=== PATIENT | female | born 2000 | race African-American/Black ===

== ENCOUNTER 2022-08-11 13:17 | Outpatient (RCR) | payer OTHER, SELFPAY ==
--- NOTE | 2022-08-11 14:24 | PTOPEVAL1 ---
Assessment and note entered by Nhung Israel, PT, DPT Evaluation Information Assessment Status Evaluation Diagnosis low back pain Onset chronic Subjective Information Pt states she has low back pain and attributes this to her breast size. She states last year she gained a lot of weight really quickly and a lot of the weight went to her breast. She states since last year she has had a lot of pain d/t feeling like she is being pulled forward/down. Pt states she does not have pain when she physically lifts her breast up, she also states she can breath better when doing this. 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 Reported Pain Level Pain Score 4: Self Report Assessment PT Clinical Summary Reza presents to therapy today with a diagnosis of low back pain. Today she demonstrates postural abnormalities in sitting and standing resulting in an increased lumbar lordosis and increased thoracic kyphosis. Through postural education, demonstration, and cueing, pt was able to find spinal neutral and felt an instant relief in her upper and lower back pain. She demonstrates core and scapular weakness adding to her postural deficits. Skilled physical therapy services are indicated to improve strength, address postural abnormalities, improve body mechanics, and to promote a return to baseline without an increase in pain. Plan of Care Interventions Electrical Stimulation,Gait Training,Hot Pack/Cold Pack,Manual Therapy,Neuro Re-education,Patient/ Caregiver Educati,Therapeutic Activities, Therapeutic Exercise PT Services Indicated Yes Treatment Frequency and 1x/wk for 6 wks Duration These treatments will address the objective and functional deficits as defined above. The patient will be advanced safely and appropriately in order for the patient to progress towards his/her prior level of function. Additional exercises will be introduced and as well as a comprehensive home exercise program upon discharge, if needed, ?to ensure carryover of functional gains achieved in the clinic. This treatment plan has been reviewed and agreement upon by the patient.
--- NOTE | 2022-08-18 08:05 | PCPTNOTE ---
Patient called and states she does not want therapy services and would like to cancel all her appointments. Therapist is going to reach out to patient.
--- NOTE | 2022-08-18 16:31 | PTOPDC ---
Assessment and note entered by Nhung Israel, PT, DPT Evaluation Information Assessment Status Discharge - Pt Not Present Diagnosis low back pain Onset chronic Subjective Information Patient called the clinic today and requesting to cancel all of her remaining appointments. She stated she does not wish to continue with any more therapy. Assessment PT Clinical Summary The patient was seen for her initial evaluation on 08/11/22 and completed 0 treatment visits. She will be discharged at this time per patient request. Plan of Care PT Services Indicated Yes
== END 2022-08-21 11:06 | disposition home or self-care (01) ==
LOC: ANHGOSHPT 13:17
DX: M54.50 Low back pain, unspecified (principal)
CPT/HCPCS: 97110; 97161; 97530

== ENCOUNTER 2022-10-12 08:08 | Outpatient (CLI) | payer OTHER, SELFPAY | END 2022-10-12 08:09 | disposition home or self-care (01) | LOC: ANHAUDASC 08:09 | DX: H91.90 Unspecified hearing loss, unspecified ear (principal) | CPT/HCPCS: 92557; 92567 ==

== ENCOUNTER 2024-09-29 17:52 | Emergency (ER) | payer OTHER, SELFPAY ==
--- OUTSIDE RECORDS SUMMARY | 2024-09-29 17:53 | XMS_ITS | Clinical Summary ---
Author Organization [facility] Address [address] [place] [address] Phone Care Team Providers Care Health Physicist Name Role Phone Mahamed Cruz MD Unavailable [phone] Agnes Gustafson APRN, [employer] Primary Care Provide r Abelardo Gibbs MD Unavailable Allergies Active Allergy Reactions Criticality Noted Date Comments Norethin Adan-Eth Estrad-Fe Hives 3 Medications EluRyng 0.12-0.015 MG/24HR RING INSERT 1 VAGINAL RING BY VAGINAL ROUTE, LEAVE IN PLACE FOR 3 WEEKS, THEN REMOVE FOR 1 WEEK. 10/11/2022 Active traZODone (DESYREL) 50 MG Tablet Take 50 mg by mouth nightly. Active Active Problems Problem Noted Date Diagnosed Date MARK (obstructive sleep apnea) 04/22/2024 Gastroesophageal reflux disease without esophagi tis 04/22/2024 Iron deficiency anemia refractory to iron therap y 10/19/2022 Encounters Date Type Department Care Team Description 09/08/2024 2:00 PM CDT Office Visit [facility] - Pulmonology & Sleep Medicine [facility] [address] [place] [address] Abelardo Gibbs MD MARK (obstructive sleep apnea) (Primary Dx); Gastroesophageal reflux disease without esophagitis Discharge Disposition: Discharged to home or Selfcare 09/08/2024 Travel from Last 3 Months Family History Medical History Relation Name Comments Chronic Lung Disease Mother Hypertension Mother Asthma Sister Relation Name Status Comments Brother Alive Mother Alive Sister Alive Social History Tobacco Use Types Packs/Day Years Used Date Smoking Tobacco: Never Smokeless Tobacco: Never Tobacco Cessation:Counseling Given: Not Answered Alcohol Use Standard Drinks/Week Comments Never 0 (1 standard drink = 0.6 oz pur e alcohol) Sexually Active Control Partners Comments Yes Comments Unknown Sex and Gender Information Value Date Recorded Sex Assigned at Not on file Legal Sex Female 4:22 AM CDT Gender Identity Not on file Sexual Orientation Not on file Last Filed Vital Signs Vital Sign Reading Time Taken Comments Blood Pressure 128/80 09/08/2024 2:54 PM CDT Pulse 115 09/08/2024 2:54 PM CDT Temperature 36.8 C (98.3 F) 09/08/2024 2:54 PM CDT Respiratory Rate 20 09/08/2024 2:54 PM CDT Oxygen Saturation 98% 09/08/2024 2:54 PM CDT Inhaled Oxygen Concentration - - Weight 107.7 kg (237 lb 8 oz) 09/08/2024 2:54 PM CDT Height 160 cm (5' 3 ) 09/08/2024 2:54 PM CDT Body Mass Index 42.07 09/08/2024 2:54 PM CDT Plan of Treatment Upcoming Encounters Date Type Department Care Team (Late st Contact Info) Description 03/10/2025 2:45 PM CDT Office Visit [facility] - Pulmonology & Sleep Medicine [facility] [address] [place] [id number] Abelardo Gibbs MD [address] [place] [address] Health Maintenance Due Date Last Done Comments Hepatitis C Virus (HCV) Screening 2002 Meningococcal B Immunization (1 of 2 - Standard) 2018 Pap Smear 2023 SARS-COV-2 Immunization ( season) 2024 Respiratory Syncytial Virus (RSV) Immunization (Adult) (1 - 1-dose 75+ series) 2077 Hepatitis B Immunization Completed 004, 03/29/2004, 2002, Additional history exists Pneumococcal Immunization Combined Aged Out 03/29/2004 No longer eligible based on patient's age to complete this topic Human Papillomavirus (HPV) Immunization Completed 07/27/2014, 10/23/2013, 07/16/2012 Meningococcal Immunization (ACWY) Completed 01/14/2018, 10/23/2013 DTaP/Tdap/Td Immunization Discontinued 2022, 02/10/2013, 03/05/2007, Additional history exists TdaP Immunization Completed 03/15/2023, 02/10/2013 Influenza Immunization Completed , 03/05/2023, 02/24/2018, Additional history exists Rotavirus Immunization Aged Out No lo nger eligible based on patient's age to complete this topic Insurance MED[employer]ID [employer] Care Teams Health Physicist Relationship Specialty Start Date End Date Agnes Gustafson APRN, [employer] [address] [place] [address] PCP - General Advanced Practice Nurse 11/21/23 Mahamed Cruz MD [address] [place] [phone] Consulting Physician Oncology 11/02/22 Abelardo Gibbs MD [address] [place] [address] Consulting Physician Pulmonary Disease 04/23/24
--- OUTSIDE RECORDS SUMMARY | 2024-09-29 17:54 | XMS_ITS | Data Portability ---
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 Plan of Treatment Reminders Order Date Submit Date Provider Last Modified By Organization Details Last Modified Time Details Appointments NEW MARCIAEN T 60 2024 09:00A Will Fowler NP Not available Not available Not available Lab magnes ium, serum or plasma 2023 024 [facility], [address], [address], [place], [address], 05/02/2024 22:08:05 TSH + free T4, serum 2023 024 [facility], [address], [address], [place], [address], 05/03/2024 08:23:31 CMP, serum or plasma 2023 024 [facility], [address], [address], [place], [address], 05/02/2024 22:08:04 Mycoba cteriu m tuberc ulosis stimul ated gamma interf oneida, qual, blood 2023 024 [facility], [address], [address], [place], [address], 05/06/2024 16:11:56 urinal ysis comple te, reflex cultur e [address] [facility], [address] [place] [address], [address], [place], [address], 11/02/2023 05:10:33 CMP, serum or plasma [address] [facility], [address] [place] [address], [address], [place], [address], 11/01/2023 00:08:44 iron + total iron-b inding capaci ty (TIBC) , serum [address] [facility], [address] [place] [address], [address], [place], [address], 11/02/2023 05:10:34 vitami n B12 + folate , serum or blood [address] [facility], [address] [place] [address], [address], [place], [address], 11/02/2023 05:10:34 vitami n D, 25-hyd antoinette, total, serum [address] [facility], [address] [place] [address], [address], [place], [address], 11/02/2023 05:10:35 Mycoba cteriu m tuberc ulosis stimul ated gamma interf oneida, qual, blood 2022 023 [facility], [address] [place] [address], [address], 04/27/2023 08:50:28 HbA1c (hemog lobin A1c), blood 2022 023 [facility], [address] [place] [address], [address], [place], [address], 04/27/2023 08:49:55 Mycoba cteriu m tuberc ulosis stimul ated gamma interf oneida, qual, blood 2022 023 [facility], [address] [place] [address], [address], [place], [address], 04/27/2023 08:50:20 TIBC (total iron-b inding capaci ty), serum [address] [facility], [address] [place] [address], [address], [place], [address], 05/31/2023 09:26:10 CBC w/ auto diff [address] [facility], [address] [place] [address], [address], [place], [address], 05/31/2023 09:26:12 Referral psychi atrist referr nd 2024 025 juan carlos Talbot (), [address], [place], [address], 08/21/2024 10:52:35 cardio logist referr al 2023 024 rodney Wallace MD, [address], [address], [place], [address], 05/07/2024 13:26:15 pulmon ologis t referr maggy - sleep study 2023 024 PAULY Gibbs MD, [address] [facility], Third Floor, [place], [address], 04/22/2024 15:16:49 weight manage ment referr maggy 2023 024 [facility], [address] [place] [address], [address], 10/31/2023 08:25:29 Procedures None record ed. Surgeries None record ed. Imaging None record ed. Medication Orders hydrox yzine HCl 50 mg tablet 2024 025 [id number], [address] [place], [address], 07/25/2024 15:31:01 venlaf axine ER 37.5 mg capsul e,exte nded releas e 24 hr 2024 025 [id number], [address] [place], [address], 07/25/2024 15:31:57 venlaf axine ER 75 mg capsul e,exte nded releas e 24 hr 2024 025 [id number], [address] [place], [address], 07/25/2024 15:31:02 trazod one 50 mg tablet 2023 025 [id number], [address] [place] [address], [address], 07/25/2024 15:26:40 Patient TargetsNo targets recorded. Patient Instructions Encounter Date Encounter Id Patient Instructions Last Modified By Organization Details Last Modified Time 03/15/2023 [id number] A healthy lifestyle: care instructions rodney Not available 03/19/2023 23:46:42 04/10/2023 [id number] A healthy lifestyle: care instructions rodney Not available 04/15/2023 10:30:41 10/30/2023 [id number] A healthy lifestyle: care instructions rodney Not available 10/30/2023 17:17:47 05/02/2024 [id number] A healthy lifestyle: care instructions rodney Not available 05/06/2024 08:55:59 07/25/2024 [id number] A healthy lifestyle: care instructions rodney Not available 07/25/2024 15:30:54 Reason for Referral Cardiovascular Surgical Tech Referral for P ersistent insomnia sleep study Referring Physician: [facility], Encounter Date: 10/30/2023 Weight Management Referral f or Morbid obesity Referring Physician: [facility], Encounter Date: 10/30/2023 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 Not Available [facility] ([facility]) [address] [facility], [place], [address], 04/19/2023 15:10:40 04/17/2004/18/2023 QUANT IFERO N-TB GOLD PLUS quantiferon criteria Commen t Quant iFERO N-TB Gold Plus is a quali tativ e indir ect test for M tuber culos is infec tion (incl uding disea se) and is inten ded for use in conju nctio n with risk asses sment , radio graph y, and other medic al and diagn ostic evalu ation s. The Quant iFERO N-TB Gold Plus resul t is deter mined by subtr actin g the Nil value from eithe r TB antig en (Ag) value . The Mitog en tube serve s as a contr ol for the test. Not Available [facility] ([facility]) [address] [facility], [place], [address], 04/19/2023 15:10:40 04/17/20 23 04/19/2023 QUANT IFERO N-TB GOLD PLUS quantiferon- TB gold plus Negati ve negati ve No respo nse to M tuber rishios is antig ens detec martha. Infec tion with M jona blackwellos is is unlik allyson, but high risk indiv idual s shoul d be consi dered for addit ional testi ng (ATS/ IDSA/ CDC Clini leandra Pract ice Guide lines , 2017) . The refer ence range is an Antig en minus Nil resul t of <0.35 IU/mL . Chemi lumin escen ce immun oassa y metho dolog y Not Available [facility] ([facility]) [address] [place], [address], 04/19/2023 15:10:40 04/17/20 23 04/19/2023 QUANT IFERO N-TB GOLD PLUS quantiferon TB1 Ag value 0.00 IU/mL Not Available [facility] ([facility]) [address] [place], [address], 04/19/2023 15:10:40 04/17/20 23 04/19/2023 QUANT IFERO N-TB GOLD PLUS quantiferon TB2 Ag value 0.02 IU/mL Not Available [facility] ([facility]) [address] [place], [address], 04/19/2023 15:10:40 04/17/20 23 04/19/2023 QUANT IFERO N-TB GOLD PLUS quantiferon nil value 0.00 IU/mL Not Available [facility] ([facility]) [address] [place], [address], 04/19/2023 15:10:40 04/17/20 23 04/19/2023 QUANT IFERO N-TB GOLD PLUS quantiferon mitogen value 0.75 IU/mL Not Available [facility] ([facility]) [address] [place], [address], 04/19/2023 15:10:40 04/17/20 23 04/18/2023 HEMOG LOBIN A1C hemoglobin A1C 5.2 % 4.8-5. 6 Predi abete s: 5.7 - 6.4 Diabe anum: >6.4 Glyce sherman contr ol for adult s with diabe anum: <7.0 Not Available [facility] ([facility]) [address] [facility], [place], [address], 04/19/2023 15:10:41 04/17/20 23 04/18/2023 VITAM IN D, 25-HY DROXY vitamin D, 25-hydroxy 11.8 NG/mL 30.0-1 00.0 below low normal Vitam in D defic iency has been defin ed by the Insti tute of Medic ine and an Endoc rine Socie ty pract ice guide line as a level of serum 25-OH vitam in D less than 20 ng/mL (1,2) . The Endoc rine Socie ty went on to furth er defin e vitam in D insuf ficie ncy as a level betwe en 21 and 29 ng/mL (2). 1. IOM (Inst itute of Medic ine). 2009. Dieta ry refer ence susan es for calci um and D. Vania hillman [place]: [facility] . 2. Nuvia perez MF, Annita ey [place], Rubens off-F errar i BROWN, et al. Evalu ation , treat ment, and preve ntion of vitam in D defic iency : an Endoc rine Socie ty clini leandra pract ice guide line. JCEM. 2010; 96(7) :1911 -30. Not Available [facility] ([facility]) [address] [facility], [place], [address], 04/19/2023 15:10:41 05/30/19 24 05/31/2023 IRON AND TIBC iron bind.cap.(TI BC) 327 ug/dL 250-45 0 Not Available [facility] ([facility]) [address] [facility], [place], [address], 05/31/2023 09:26:10 05/30/19 24 05/31/2023 IRON AND TIBC UIBC 269 ug/dL 131-42 5 Not Available [facility] ([facility]) [address] [place], [address], 05/31/2023 09:26:10 05/30/19 24 05/31/2023 IRON AND TIBC iron 58 ug/dL 27-159 Not Available [facility] ([facility]) [address] [place], [address], 05/31/2023 09:26:10 05/30/19 24 05/31/2023 IRON AND TIBC iron saturation 18 % 15-55 Not Available [facility] ([facility]) [address] [place], [address], 05/31/2023 09:26:10 05/30/19 24 05/31/2023 MAGNE SIUM magnesium 2.0 mg/dL 1.6-2. 3 Not Available [facility] ([facility]) [address] [place], [address], 05/31/2023 09:26:10 05/30/19 24 05/31/2023 AGUSTINA TIN ferritin 74 NG/mL 15-150 Not Available [facility] ([facility]) [address] [place], [address], 05/31/2023 09:26:11 05/30/19 24 05/31/2023 CBC WITH DIFFE RENTI AL/PL ATELE T WBC 7.2 x10e3 /uL 3.4-10 .8 Not Available [facility] ([facility]) [address] [place], [address], 05/31/2023 09:26:12 05/30/19 24 05/31/2023 CBC WITH DIFFE RENTI AL/PL ATELE T RBC 4.87 x10e6 /uL 3.77-5 .28 Not Available [facility] ([facility]) [address] [facility], [place], [address], 05/31/2023 09:26:12 05/30/19 24 05/31/2023 CBC WITH DIFFE RENTI AL/PL ATELE T hemoglobin 14.2 g/dL 11.1-1 5.9 Not Available [facility] ([facility]) [address] [facility], [place], [address], 05/31/2023 09:26:12 05/30/19 24 05/31/2023 CBC WITH DIFFE RENTI AL/PL ATELE T hematocrit 41.3 % 34.0-4 6.6 Not Available [facility] ([facility]) [address] [facility], [place], [address], 05/31/2023 09:26:12 05/30/19 24 05/31/2023 CBC WITH DIFFE RENTI AL/PL ATELE T MCV 85 fL 79-97 Not Available [facility] ([facility]) [address] [facility], [place], [address], 05/31/2023 09:26:12 05/30/19 24 05/31/2023 CBC WITH DIFFE RENTI AL/PL ATELE T MCH 29.2 pg 26.6-3 3.0 Not Available [facility] ([facility]) [address] [facility], [place], [address], 05/31/2023 09:26:12 05/30/19 24 05/31/2023 CBC WITH DIFFE RENTI AL/PL ATELE T MCHC 34.4 g/dL 31.5-3 5.7 Not Available [facility] ([facility]) [address] [facility], [place], [address], 05/31/2023 09:26:12 05/30/19 24 05/31/2023 CBC WITH DIFFE RENTI AL/PL ATELE T RDW 12.5 % 11.7-1 5.4 Not Available [facility] ([facility]) [address] [facility], [place], [address], 05/31/2023 09:26:12 05/30/19 24 05/31/2023 CBC WITH DIFFE RENTI AL/PL ATELE T platelets 311 x10e3 /uL 150-45 0 Not Available [facility] ([facility]) [address] [facility], [place], [address], 05/31/2023 09:26:12 05/30/19 24 05/31/2023 CBC WITH DIFFE RENTI AL/PL ATELE T neutrophils 53 % notest ab. Not Available [facility] ([facility]) [address] [facility], [place], [address], 05/31/2023 09:26:12 05/30/19 24 05/31/2023 CBC WITH DIFFE RENTI AL/PL ATELE T lymphs 38 % notest ab. Not Available [facility] ([facility]) [address] [facility], [place], [address], 05/31/2023 09:26:12 05/30/19 24 05/31/2023 CBC WITH DIFFE RENTI AL/PL ATELE T monocytes 6 % notest ab. Not Available [facility] ([facility]) [address] [facility], [place], [address], 05/31/2023 09:26:12 05/30/19 24 05/31/2023 CBC WITH DIFFE RENTI AL/PL ATELE T eos 2 % notest ab. Not Available [facility] ([facility]) [address] [facility], [place], [address], 05/31/2023 09:26:12 05/30/19 24 05/31/2023 CBC WITH DIFFE RENTI AL/PL ATELE T basos 1 % notest ab. Not Available [facility] ([facility]) [address] [facility], [place], [address], 05/31/2023 09:26:12 05/30/19 24 05/31/2023 CBC WITH DIFFE RENTI AL/PL ATELE T neutrophils (absolute) 3.8 x10e3 /uL 1.4-7. 0 Not Available [facility] ([facility]) [address] [facility], [place], [address], 05/31/2023 09:26:12 05/30/19 24 05/31/2023 CBC WITH DIFFE RENTI AL/PL ATELE T lymphs (absolute) 2.8 x10e3 /uL 0.7-3. 1 Not Available [facility] ([facility]) [address] [facility], [place], [address], 05/31/2023 09:26:12 05/30/19 24 05/31/2023 CBC WITH DIFFE RENTI AL/PL ATELE T monocytes(ab solute) 0.5 x10e3 /uL 0.1-0. 9 Not Available [facility] ([facility]) [address] [facility], [place], [address], 05/31/2023 09:26:12 05/30/19 24 05/31/2023 CBC WITH DIFFE RENTI AL/PL ATELE T eos (absolute) 0.1 x10e3 /uL 0.0-0. 4 Not Available [facility] ([facility]) [address] [facility], [place], [address], 05/31/2023 09:26:12 05/30/19 24 05/31/2023 CBC WITH DIFFE RENTI AL/PL ATELE T baso (absolute) 0.0 x10e3 /uL 0.0-0. 2 Not Available [facility] ([facility]) [address] [facility], [place], [address], 05/31/2023 09:26:12 05/30/19 24 05/31/2023 CBC WITH DIFFE RENTI AL/PL ATELE T immature granulocytes 0 % notest ab. Not Available [facility] ([facility]) [address] [facility], [place], [address], 05/31/2023 09:26:12 05/30/19 24 05/31/2023 CBC WITH DIFFE RENTI AL/PL ATELE T immature grans (abs) 0.0 x10e3 /uL 0.0-0. 1 Not Available [facility] ([facility]) [address] [facility], [place], [address], 05/31/2023 09:26:12 10/31/19 24 10/31/2023 COMP. METAB OLIC PANEL (14) glucose 118 mg/dL 70-99 above high normal Not Available [facility] [address] [place] [address], [address], 11/01/2023 00:08:44 10/31/19 24 10/31/2023 COMP. METAB OLIC PANEL (14) BUN 7 mg/dL 6-20 Not Available [facility] [address] [place] [address], [address], 11/01/2023 00:08:44 10/31/19 24 10/31/2023 COMP. METAB OLIC PANEL (14) creatinine 0.78 mg/dL 0.76-1 .27 Not Available [facility] [address] [place] [address], [address], 11/01/2023 00:08:44 10/31/19 24 10/31/2023 COMP. METAB OLIC PANEL (14) eGFR 111 >=60 Units for eGFR value s are mL/mi n/1.7 3 The eGFR Calcu latio n has not been valid ated for patie nts under the age of 18. If test resul ts are displ ayed for a patie nt under the age of 18, disre andria that value . Not Available [facility] [address] [place] [address], [address], 11/01/2023 00:08:44 10/31/19 24 10/31/2023 COMP. METAB OLIC PANEL (14) BUN/creatini ne ratio 9 9-23 Not Available [facility] [address] [place], [address], 11/01/2023 00:08:44 10/31/19 24 10/31/2023 COMP. METAB OLIC PANEL (14) sodium 141 mmol/ L 134-14 4 Not Available [facility] [address] [place], [address], 11/01/2023 00:08:44 10/31/19 24 10/31/2023 COMP. METAB OLIC PANEL (14) potassium 4.2 mmol/ L 3.5-5. 2 Not Available [facility] [address] [place] [address], [address], 11/01/2023 00:08:44 10/31/19 24 10/31/2023 COMP. METAB OLIC PANEL (14) chloride 105 mmol/ L 96-106 Not Available [facility] [address] [place] [address], [address], 11/01/2023 00:08:44 10/31/19 24 10/31/2023 COMP. METAB OLIC PANEL (14) carbon dioxide, total 24 mmol/ L 20-29 Not Available [facility] [address] [place] [address], [address], 11/01/2023 00:08:44 10/31/19 24 10/31/2023 COMP. METAB OLIC PANEL (14) calcium 9.3 mg/dL 8.7-10 .2 Not Available [facility] [address] [place] [address], [address], 11/01/2023 00:08:44 10/31/19 24 10/31/2023 COMP. METAB OLIC PANEL (14) protein, total 7.0 g/dL 6.0-8. 5 Not Available [facility] [address] [place] [address], [address], 11/01/2023 00:08:44 10/31/19 24 10/31/2023 COMP. METAB OLIC PANEL (14) albumin 4.0 g/dL 4.0-5. 0 Not Available [facility] [address] [place] [address], [address], 11/01/2023 00:08:44 10/31/19 24 10/31/2023 COMP. METAB OLIC PANEL (14) globulin, total 3.0 g/dL 1.5-4. 5 Not Available [facility] [address] [place] [address], [address], 11/01/2023 00:08:44 10/31/19 24 10/31/2023 COMP. METAB OLIC PANEL (14) A/G ratio 1.3 1.2-2. 2 Not Available [facility] [address] [place] [address], [address], 11/01/2023 00:08:44 10/31/19 24 10/31/2023 COMP. METAB OLIC PANEL (14) bilirubin, total 0.2 mg/dL 0.0-1. 2 Not Available [facility] [address] [place] [address], [address], 11/01/2023 00:08:44 10/31/19 24 10/31/2023 COMP. METAB OLIC PANEL (14) alkaline phosphatase 75 IU/L 44-121 Not Available [facility] Department [address] [place] [address], [address], 11/01/2023 00:08:44 10/31/19 24 10/31/2023 COMP. METAB OLIC PANEL (14) AST (SGOT) 16 IU/L 0-40 Not Available [facility] [address] [place], [address], 11/01/2023 00:08:44 10/31/19 24 10/31/2023 COMP. METAB OLIC PANEL (14) ALT (SGPT) 9 IU/L 0-32 Not Available [facility] Department [address], [place], [address], 11/01/2023 00:08:44 10/31/19 24 11/01/2023 TESTO STERO NE testosterone <3 NG/dL 13-71 below low normal Not Available [facility] ([facility]) [address] [facility], [place], [address], 11/01/2023 11:18:00 10/31/19 24 11/01/2023 MICRO SCOPI C EXAMI NATIO N WBC 0-5 /hpf 0-5 Not Available [facility] ([facility]) [address] [facility], [place], [address], 11/02/2023 05:10:33 10/31/19 24 11/01/2023 MICRO SCOPI C EXAMI NATIO N RBC 11-30 /hpf 0-2 abnormal Not Available [facility] ([facility]) [address] [facility], [place], [address], 11/02/2023 05:10:33 10/31/19 24 11/01/2023 MICRO SCOPI C EXAMI NATIO N epithelial cells (non renal) >10 /hpf 0-10 abnormal Not Available [facility] ([facility]) [address] [facility], [place], [address], 11/02/2023 05:10:33 10/31/19 24 11/01/2023 MICRO SCOPI C EXAMI NATIO N casts None seen /lpf nonese en Not Available [facility] ([facility]) [address] [place], [address], 11/02/2023 05:10:33 10/31/19 24 11/01/2023 MICRO SCOPI C EXAMI NATIO N mucus threads Presen t notest ab. Not Available [facility] ([facility]) [address] [place], [address], 11/02/2023 05:10:33 10/31/19 24 11/01/2023 MICRO SCOPI C EXAMI NATIO N bacteria Many nonese en/few abnormal Not Available [facility] ([facility]) [address] [facility], [place], [address], 11/02/2023 05:10:33 10/31/19 24 11/01/2023 UA/M W/RFL X CULTU RE, ROUTI NE specific gravity 1.028 1.005- 1.030 Not Available [facility] ([facility]) [address] [facility], [place], [address], 11/02/2023 05:10:33 10/31/1911/01/2023 UA/M W/RFL X CULTU RE, ROUTI NE pH 6.0 5.0-7. 5 Not Available [facility] ([facility]) [address] [facility], [place], [address], 11/02/2023 05:10:33 10/31/19 24 11/01/2023 UA/M W/RFL X CULTU RE, ROUTI NE urine-color YELLOW yellow Not Available [facility] ([facility]) [address] [place], [address], 11/02/2023 05:10:33 10/31/19 24 11/01/2023 UA/M W/RFL X CULTU RE, ROUTI NE appearance CLOUDY clear abnormal Not Available [facility] ([facility]) [address] [place], [address], 11/02/2023 05:10:33 10/31/19 24 11/01/2023 UA/M W/RFL X CULTU RE, ROUTI NE WBC esterase NEGATI VE negati ve Not Available [facility] ([facility]) [address] [place], [address], 11/02/2023 05:10:33 10/31/19 24 11/01/2023 UA/M W/RFL X CULTU RE, ROUTI NE protein 1+ negati ve/tra ce abnormal Not Available [facility] ([facility]) [address] [place], [address], 11/02/2023 05:10:33 10/31/19 24 11/01/2023 UA/M W/RFL X CULTU RE, ROUTI NE glucose NEGATI VE negati ve Not Available [facility] ([facility]) [address] [place], [address], 11/02/2023 05:10:33 10/31/19 24 11/01/2023 UA/M W/RFL X CULTU RE, SAI NE ketones TRACE negati ve abnormal Not Available [facility] ([facility]) [address] [place], [address], 11/02/2023 05:10:33 10/31/19 24 11/01/2023 UA/M W/RFL X CULTU RE ROUTGilmer NE occult blood 1+ negati ve abnormal Not Available [facility] ([facility]) [address] [place], [address], 11/02/2023 05:10:33 10/31/19 24 11/01/2023 UA/M W/RFL X CULTU RESAI NE bilirubin NEGATI VE negati ve Not Available [facility] ([facility]) [address] [place], [address], 11/02/2023 05:10:33 10/31/19 24 11/01/2023 UA/M W/RFL X CULTU RE, ROUTI NE urobilinogen ,semi-qn 1.0 mg/dL 0.2-1. 0 Not Available [facility] ([facility]) [address] [place], [address], 11/02/2023 05:10:33 10/31/19 24 11/01/2023 UA/M W/RFL X CULTU RE, ROUTI NE nitrite, urine NEGATI VE negati ve Not Available [facility] ([facility]) [address] [facility], [place], [address], 11/02/2023 05:10:33 10/31/19 24 11/01/2023 UA/M W/RFL X CULTU RE, ROUTI NE microscopic examination SEE BELOW: Micro scopi c was indic ated and was perfo rmed. Not Available [facility] ([facility]) [address] [facility], [place], [address], 11/02/2023 05:10:33 10/31/19 24 11/01/2023 UA/M W/RFL X CULTU RE, ROUTI NE urinalysis reflex COMMEN T This speci men has refle xed to a Urine Cultu re. Not Available [facility] ([facility]) [address] [facility], [place], [address], 11/02/2023 05:10:33 10/31/19 24 11/01/2023 VITAM IN B12 AND FOLAT E vitamin B12 233 pg/mL 232-12 45 Not Available [facility] ([facility]) [address] [place], [address], 11/02/2023 05:10:34 10/31/19 24 11/01/2023 VITAM IN B12 AND FOLAT E folate (folic acid), serum 6.8 NG/mL >3.0 A serum folat e socorro ntrat ion of less than 3.1 ng/mL is consi dered to repre sent clini leandra defic iency . Not Available [facility] ([facility]) [address] [place], [address], 11/02/2023 05:10:34 10/31/19 24 11/01/2023 IRON AND TIBC iron bind.cap.(TI BC) 308 ug/dL 250-45 0 Not Available [facility] ([facility]) [address] [place], [address], 11/02/2023 05:10:34 10/31/19 24 11/01/2023 IRON AND TIBC UIBC 271 ug/dL 131-42 5 Not Available [facility] ([facility]) [address] [facility], [place], [address], 11/02/2023 05:10:34 10/31/19 24 11/01/2023 IRON AND TIBC iron 37 ug/dL 27-159 Not Available [facility] ([facility]) [address] [facility], [place], [address], 11/02/2023 05:10:34 10/31/19 24 11/01/2023 IRON AND TIBC iron saturation 12 % 15-55 below low normal Not Available [facility] ([facility]) [address] [place], [address], 11/02/2023 05:10:34 10/31/19 24 11/02/2023 URINE CULTU RE, DAVEI NE urine culture, routine Final report Not Available [facility] ([facility]) [address] [place], [address], 11/02/2023 05:10:35 10/31/19 24 11/02/2023 URINE CULTU RE, ROUTI NE result 1 Commen t Mixed uroge nital per 25,00 0-50, 000 colon y formi ng units per mL Not Available [facility] ([facility]) [address] [place], [address], 11/02/2023 05:10:35 10/31/19 24 11/01/2023 VITAM IN D, 25-HY DROXY vitamin D, 25-hydroxy 10.8 NG/mL 30.0-1 00.0 below low normal Vitam in D defic iency has been defin ed by the Insti tute of Medic ine and an Endoc rine Socie ty pract ice guide line as a level of serum 25-OH vitam in D less than 20 ng/mL (1,2) . The Endoc rine Socie ty went on to furth er defin e vitam in D insuf ficie ncy as a level betwe en 21 and 29 ng/mL (2). 1. IOM (Inst itute of Medic ine). 2010. Dieta ry refer ence intak es for calci um and D. Vania hillman [place]: [facility] . 2. Nuvia perez MF, Annita miller [place], Rubens off-F errar i BROWN, et al. Evalu ation , treat ment, and preve ntion of vitam in D defic iency : an Endoc rine Socie ty clini leandra pract ice guide line. JCEM. 2010; 96(7) :1911 -30. Not Available [facility] ([facility]) [address] [facility], [place], [address], 11/02/2023 05:10:35 11/02/19 24 11/03/2023 CBC W Auto Diffe renti al panel - Blood WBC WBC Not Available Not Availa ble 07/15/2024 14:48:28 11/02/19 24 11/03/2023 CBC W Auto Diffe renti al panel - Blood RBC RBC Not Available Not Availa ble 07/15/2024 14:48:28 11/02/19 24 11/03/2023 CBC W Auto Diffe renti al panel - Blood hemoglobin hemog lobin Not Available Not Available 07/15/2024 14:48:28 11/02/19 24 11/03/2023 CBC W Auto Diffe renti al panel - Blood hematocrit hemat ocrit Not Available Not Available 07/15/2024 14:48:28 11/02/19 24 11/03/2023 CBC W Auto Diffe renti al panel - Blood MCV MCV Not Available Not Availa ble 07/15/2024 14:48:28 11/02/19 24 11/03/2023 CBC W Auto Diffe renti al panel - Blood MCH MCH Not Available Not Availa ble 07/15/2024 14:48:28 11/02/19 24 11/03/2023 CBC W Auto Diffe renti al panel - Blood MCHC MCHC Not Available Not Availa ble 07/15/2024 14:48:28 11/02/19 24 11/03/2023 CBC W Auto Diffe renti al panel - Blood RDW-CV RDW-C V Not Available Not Available 07/15/2024 14:48:28 11/02/19 24 11/03/2023 CBC W Auto Diffe renti al panel - Blood platelet plate let Not Available Not Available 07/15/2024 14:48:28 11/02/19 24 11/03/2023 CBC W Auto Diffe renti al panel - Blood MPV MPV Not Available Not Availa ble 07/15/2024 14:48:28 11/02/19 24 11/03/2023 CBC W Auto Diffe renti al panel - Blood absolute neutrophil absol jamul neutr ophil Not Available Not Available 07/15/2024 14:48:28 11/02/19 24 11/03/2023 CBC W Auto Diffe renti al panel - Blood absolute lymphocyte absol jamul lymph ocyte Not Available Not Available 07/15/2024 14:48:28 11/02/19 24 11/03/2023 CBC W Auto Diffe renti al panel - Blood absolute monocyte absol jamul monoc yte Not Available Not Available 07/15/2024 14:48:28 11/02/19 24 11/03/2023 CBC W Auto Diffe renti al panel - Blood absolute eosinophil absol jamul eosin ophil Not Available Not Available 07/15/2024 14:48:28 11/02/19 24 11/03/2023 CBC W Auto Diffe renti al panel - Blood absolute basophil absol jamul basop hil Not Available Not Available 07/15/2024 14:48:28 11/02/19 24 11/03/2023 CBC W Auto Diffe renti al panel - Blood absolute immature granulocyte absol jamul immat ure granu locyt e Not Available Not Available 07/15/2024 14:48:28 11/06/19 24 11/06/2023 Insul in [Unit s/vol ume] in Serum or Plasm a insulin [units/volum e] in serum or plasma high insul in Not Available Not Available 07/15/2024 14:48:28 05/02/20 24 05/02/2024 COMP. METAB OLIC PANEL (14) glucose 77 mg/dL 70-99 Not Available [facility] [address] [place] [address], [address], 05/02/2024 22:08:04 05/02/20 24 05/02/2024 COMP. METAB OLIC PANEL (14) BUN 9 mg/dL 6-20 Not Available [facility] [address] [place] [address], [id number], 05/02/2024 22:08:04 05/02/20 24 05/02/2024 COMP. METAB OLIC PANEL (14) creatinine 0.74 mg/dL 0.76-1 .27 below low normal Not Available [facility] [address] [place] [address], [address], 05/02/2024 22:08:04 05/02/20 24 05/02/2024 COMP. METAB OLIC PANEL (14) eGFR 117 >=60 Units for eGFR value s are mL/mi n/1.7 3 The eGFR Calcu latio n has not been valid ated for patie nts under the age of 18. If test resul ts are displ ayed for a patie nt under the age of 18, disre andria that value . Not Available [facility] [address] [place] [address], [id number], 05/02/2024 22:08:04 05/02/20 24 05/02/2024 COMP. METAB OLIC PANEL (14) BUN/creatini ne ratio 12 9-23 Not Available [facility] [address] [place] [address], [address], 05/02/2024 22:08:04 05/02/20 24 05/02/2024 COMP. METAB OLIC PANEL (14) sodium 139 mmol/ L 134-14 4 Not Available [facility] [address] [place] [address], [id number], 05/02/2024 22:08:04 05/02/20 24 05/02/2024 COMP. METAB OLIC PANEL (14) potassium 4.6 mmol/ L 3.5-5. 2 Not Available [facility] [address] [place], [address], 05/02/2024 22:08:04 05/02/20 24 05/02/2024 COMP. METAB OLIC PANEL (14) chloride 100 mmol/ L 96-106 Not Available [facility] [address] [place], [address], 05/02/2024 22:08:04 05/02/20 24 05/02/2024 COMP. METAB OLIC PANEL (14) carbon dioxide, total 30 mmol/ L 20-29 above high normal Not Available [facility] [address] [place], [address], 05/02/2024 22:08:04 05/02/20 24 05/02/2024 COMP. METAB OLIC PANEL (14) calcium 9.6 mg/dL 8.7-10 .2 Not Available [facility] [address] [place], [address], 05/02/2024 22:08:04 05/02/20 24 05/02/2024 COMP. METAB OLIC PANEL (14) protein, total 7.7 g/dL 6.0-8. 5 Not Available [facility] [address] [place], [address], 05/02/2024 22:08:04 05/02/20 24 05/02/2024 COMP. METAB OLIC PANEL (14) albumin 4.5 g/dL 4.0-5. 0 Not Available [facility] [address] [place], [address], 05/02/2024 22:08:04 05/02/20 24 05/02/2024 COMP. METAB OLIC PANEL (14) globulin, total 3.2 g/dL 1.5-4. 5 Not Available [facility] [address] [place] [address], [id number], 05/02/2024 22:08:04 05/02/20 24 05/02/2024 COMP. METAB OLIC PANEL (14) A/G ratio 1.5 1.2-2. 2 Not Available [facility] [address] [place] [address], [address], 05/02/2024 22:08:04 05/02/20 24 05/02/2024 COMP. METAB OLIC PANEL (14) bilirubin, total 0.4 mg/dL 0.0-1. 2 Not Available [facility] [address] [place] [address], [address], 05/02/2024 22:08:04 05/02/20 24 05/02/2024 COMP. METAB OLIC PANEL (14) alkaline phosphatase 82 IU/L 44-121 Not Available [facility] [address] [place] [address], [address], 05/02/2024 22:08:04 05/02/20 24 05/02/2024 COMP. METAB OLIC PANEL (14) AST (SGOT) 20 IU/L 0-40 Not Available [facility] [address] [place] [address], [address], 05/02/2024 22:08:04 05/02/20 24 05/02/2024 COMP. METAB OLIC PANEL (14) ALT (SGPT) 13 IU/L 0-32 Not Available [facility] [address] [place] [address], [address], 05/02/2024 22:08:04 05/02/20 24 05/02/2024 MAGNE SIUM magnesium 1.9 mg/L 1.6-2. 3 Not Available [facility] [address] [place] [address], [address], 05/02/2024 22:08:05 05/02/20 24 05/03/2024 TSH+F REE T4 TSH 1.140 uIU/m L 0.450- 4.500 Not Available [facility] ([facility]) [address] [place], [address], 05/03/2024 08:23:31 05/02/20 24 05/03/2024 TSH+F REE T4 T4,free(dire ct) 1.13 NG/dL 0.82-1 .77 Not Available [facility] ([facility]) [address] [place], [address], 05/03/2024 08:23:31 05/02/20 24 05/03/2024 QUANT IFERO N-TB GOLD PLUS quantiferon incubation INCUBA TION PERFOR MED. Not Available [facility] ([facility]) [address] [facility], [place], [address], 05/06/2024 16:11:56 05/02/20 24 05/03/2024 QUANT IFERO N-TB GOLD PLUS quantiferon criteria COMMEN T Quant iFERO N-TB Gold Plus is a quali tativ e indir ect test for M tuber culos is infec tion (incl uding disea se) and is inten ded for use in conju nctio n with risk asses sment , radio graph y, and other medic al and diagn ostic evalu ation s. The Quant iFERO N-TB Gold Plus resul t is deter mined by subtr actin g the Nil value from eithe r TB antig en (Ag) value . The Mitog en tube serve s as a contr ol for the test. Not Available [facility] ([facility]) [address] [facility], [place], [address], 05/06/2024 16:11:56 05/02/20 24 05/06/2024 QUANT IFERO N-TB GOLD PLUS quantiferon- TB gold plus NEGATI VE negati ve No respo nse to M tuber culos is antig ens detec martha. Infec tion with M tuber culos is is unlik allyson, but high risk indiv idual s shoul d be consi dered for addit ional testi ng (ATS/ IDSA/ CDC Clini leandra Pract ice Guide lines , 2017) . The refer ence range is an Antig en minus Nil resul t of <0.35 IU/mL . Chemi lumin escen ce immun oassa y metho dolog y Not Available [facility] ([facility]) [address] [place], [address], 05/06/2024 16:11:56 05/02/20 24 05/06/2024 QUANT IFERO N-TB GOLD PLUS quantiferon TB1 Ag value 0.02 IU/mL Not Available [facility] ([facility]) [address] [place], [address], 05/06/2024 16:11:56 05/02/20 24 05/06/2024 QUANT IFERO N-TB GOLD PLUS quantiferon TB2 Ag value 0.01 IU/mL Not Available [facility] ([facility]) [address] [place], [address], 05/06/2024 16:11:56 05/02/20 24 05/06/2024 QUANT IFERO N-TB GOLD PLUS quantiferon nil value 0.00 IU/mL Not Available [facility] ([facility]) [address] [place], [address], 05/06/2024 16:11:56 05/02/20 24 05/06/2024 QUANT IFERO N-TB GOLD PLUS quantiferon mitogen value >10.00 IU/mL Not Available [facility] ([facility]) [address] [place], [address], 05/06/2024 16:11:56 05/15/20 24 05/16/2024 Bacte rial vagin osis and vagin itis DNA panel - Vagin al fluid by Probe with signa l ampli ficat ion bacterial vaginosis BV neg bacte rial vagin osis Not Available Not Available 07/15/2024 14:48:28 05/15/20 24 05/16/2024 Bacte rial vagin osis and vagin itis DNA panel - Vagin al fluid by Probe with signa l ampli ficat ion jorge species C. spp neg mey da speci es Not Available Not Available 07/15/2024 14:48:28 05/15/20 24 05/16/2024 Bacte rial vagin osis and vagin itis DNA panel - Vagin al fluid by Probe with signa l ampli ficat ion jorge glabrata C. gla neg mey da glabr ashli Not Available Not Available 07/15/2024 14:48:28 05/15/20 24 05/16/2024 Bacte rial vagin osis and vagin itis DNA panel - Vagin al fluid by Probe with signa l ampli ficat ion trichomonas vaginalis CV/TV TRICH neg trich omona s vagin jahaira CV/TV Not Available Not Available 07/15/2024 14:48:28 05/15/20 24 05/16/2024 Bacte rial vagin osis and vagin itis DNA panel - Vagin al fluid by Probe with signa l ampli ficat ion chlamydia trachomatis CT neg chlam ydia trach omati s Not Available Not Available 07/15/2024 14:48:28 05/15/20 24 05/16/2024 Bacte rial vagin osis and vagin itis DNA panel - Vagin al fluid by Probe with signa l ampli ficat ion neisseria gonorrhoeae GC neg neiss eria gonor rhoea e Not Available Not Available 07/15/2024 14:48:28 Result Notes None recorded. Problems Name Problem SNOMED Code Status Onset Date Resolution Date Notes Provider Name and Address Organization Details Recorded Time Obesity 361852509 Active 2020 Jeannie pan, [place] - [facility] 14:41:32 Vitamin D deficiency 62469685 Active 2020 Je[place] [facility] 15:27:41 Iron deficiency 88436018 Active 2020 Jeannie [place], [place] [facility] 14:03:48 Irregular periods 08626175 Active TRACY Beard Attn: Accountin g,[address] [facility], [place], [address], [place] - [facility] 6 14:47:44 Anxiety 46260992 Active TRACY Beard Attn: Breanna ramirez,[address] [facility], [place], [address], [place] - [facility] 6 14:47:44 Iron deficiency anemia 82670976 Active TRACY Beard Attn: Breanna ramirez,[address] [facility], [place], [address], [place] - [facility] 6 14:47:44 Generalized headache 579494832 Active TRACY Beard Attn: Breanna ramirez,[address] [facility], [place], [address], [place] - [facility] 6 14:47:44 Dysfunctional uterine bleeding Active TRACY Beard Attn: Breanna ramirez,[address] [facility], [place], [address], [place] - [facility] 6 10:15:56 Problem Notes None recorded. Procedures Surgical History Date Name Laterality Status Provider Name and Address Organization Details Recorded Time 6 Transfusion bld/bld compnt completed Zeny Patiño [place] - [facility] 01/15/2019 17:30:58 Imaging Results None recorded. Procedure Notes None recorded. Medical Equipment None Reported. Allergies Allergen ID Allergen Name Allergen Category Reaction Reaction Severity Criticality Documentation Date Start Date Code Code System Note Provider Name and Address Organization Details Recorded Time 778545 Blis[place] Fe .10/17 (28) medicatio n hives moderate Not available 07/10/2018 [id number] UNK Zeny Patiño MA null, [place] - [facility] 9 10:33:49 Medications Name Sig Start Date Stop Date Status Note LastModified by Organization Details LastModified Time medroxyprog esterone 10 mg tablet TAKE 1 TABLET BY MOUTH THREE TIMES A DAY X3 DAYS 08/04 completed Not Available Not Available Not Available venlafaxine ER 37.5 mg capsule,ext ended release 24 hr Take 1 capsule every day by oral route for 7 days. 2024 active Not Available Not Available Not Avai lable venlafaxine ER 75 mg capsule,ext ended release 24 hr TAKE 1 CAPSULE BY MOUTH EVERY DAY active Not Available Not Available No t Available trazodone 50 mg tablet TAKE 1 TABLET BY MOUTH EVERYDAY AT BEDTIME 07/25 completed Not Available Not Available Not Available Tubersol 5 tub. unit/0.1 mL intradermal injection solution Inject 0.1 mL by intraderm al route. 11/12 completed Not Available Not Available Not Available medroxyprog esterone 5 mg tablet Take 1 tablet every day by oral route for 10 days. 03/15 completed Not Available Not Available Not Available metformin 850 mg tablet TAKE 1 TABLET BY MOUTH EVERY DAY 10/29 completed Not Available Not Available Not Available metronidazo le 500 mg tablet Take 4 tablets by oral route. 05/19 completed Not Available Not Available Not Available hydroxyzine HCl 50 mg tablet TAKE 1 TABLET BY MOUTH EVERY 6 HOURS NEEDED FOR 7 DAYS active Not Available Not Available No t Available propranolol 10 mg tablet TAKE 1 TABLET BY MOUTH THREE TIMES A DAY NEEDED 03/24 completed Not Available Not Available Not Available famotidine 20 mg tablet Take 1 tablet twice a day by oral route as directed for 30 days. 03/24 completed Not Available Not Available Not Available ferrous sulfate 325 mg (65 mg iron) tablet TAKE 1 TABLET BY MOUTH EVERY DAY FOR 30 DAYS 07/25 completed Not Available Not Available Not Available docusate sodium 100 mg capsule Take 1 capsule every day by oral route as needed. 07/10 completed Not Available Not Available Not Available omeprazole 20 mg capsule,del ayed release Take 1 capsule every day by oral route for 30 days. 03/24 completed Not Available Not Available Not Available hydroxyzine HCl 25 mg tablet 07/10 completed Not Available Not Available Not Available ergocalcife rol (vitamin D2) 1,250 mcg (50,000 unit) capsule TAKE 1 CAPSULE BY MOUTH ONE TIME PER WEEK FOR 90 DAYS active Not Available Not Available No t Available drospirenon e 3 mg-ethinyl estradiol 0.03 mg tablet TAKE 1 TABLET BY MOUTH EVERY DAY 06/11 /2024 completed Not Available Not Available Not Available amoxicillin 875 mg-potassiu m clavulanate 125 mg tablet TAKE 1 TABLET BY MOUTH EVERY 12 HOURS 04/27 completed Not Available Not Available Not Available Vitamin D3 25 mcg (1,000 unit) tablet Take 1 tablet every day by oral route for 30 days. 09/09 completed Not Available Not Available Not Available Junel .10/17 (21) 1.5 mg-30 mcg tablet Take by oral route as directed on package 04/07 completed Not Available Not Available Not Available Junel FE .10/17 (28) 1.5 mg-30 mcg (21)/75 mg (7) tablet Take by oral route as directed on package 12/20 completed Not Available Not Available Not Available Sronyx 0.1 mg-20 mcg tablet 07/10 completed Not Available Not Available Not Available cholecalcif manny (vitamin D3) 1,250 mcg (50,000 unit) capsule Take 1 capsule every week by oral route. 04/22 completed Not Available Not Available Not Available venlafaxine ER 225 mg tablet,exte nded release 24 hr active Not Available Not Available Not Available vit no.95-ely us fumarate 28 mg-folic acid 800 mcg tablet TAKE 1 TABLET BY MOUTH EVERY DAY 10/04 completed Not Available Not Available Not Available Blisovi 24 Fe 1 mg-20 mcg (24)/75 mg (4) tablet 07/10 completed Not Available Not Available Not Available Fluarix Quad [id number] (PF) 60 mcg (15 mcg x 4)/0.5 mL IM syringe 07/10 completed Not Available Not Available Not Available Fluarix Quad 4919-4889 (PF) 60 mcg (15 mcg x 4)/0.5 mL IM syringe 07/10 completed Not Available Not Available Not Available Fluzone Quad (PF) 60 mcg(15 mcgx4)/0.5 mL intramuscul ar syringe 07/10 completed Not Available Not Available Not Available EluRyng 0.12 mg-0.015 mg/24 hr vaginal ring INSERT 1 VAGINAL RING BY VAGINAL ROUTE, LEAVE IN PLACE FOR 3 WEEKS, THEN REMOVE FOR 1 WEEK. active Not Available Not Available No t Available ID NOW COVID-19 Test Kit TEST DIRECTED 04/27 completed Not Available Not Available Not Available Vitals Date Recorded Body height Body mass index (BMI) Body weight Oxygen saturation Oxygen saturation in Arterial blood by Pulse oximetry Heart rate Respiratory rate Body temperature Systolic blood pressure Diastolic blood pressure Provider Name and Address Organization Details Last Updated DateTime 3 160.02 cm 41.5 kg/m2 648941. 41 g 99 % 99 % 90 /min 16 /min 98.3 [degF] 98 mm[Hg] 72 mm[Hg] Zeny Patiño MA [facility] 3 17:35:36 Date Recorded Body height Body mass index (BMI) Body weight Respiratory rate Body temperature Oxygen saturation Oxygen saturation in Arterial blood by Pulse oximetry Heart rate Systolic blood pressure Diastolic blood pressure Provider Name and Address Organization Details Last Updated DateTime 3 160.02 cm 40.8 kg/m2 605879. 05 g 18 /min 98.6 [degF] 98 % 98 % 89 /min 110 mm[Hg] 72 mm[Hg] Delphine Weathers [facility] 3 17:17:09 Date Recorded Body height Body mass index (BMI) Body weight Respiratory rate Body temperature Oxygen saturation Oxygen saturation in Arterial blood by Pulse oximetry Heart rate Systolic blood pressure Diastolic blood pressure Provider Name and Address Organization Details Last Updated DateTime 4 160.02 cm 42.3 kg/m2 936448. 58 g 18 /min 98.4 [degF] 98 % 98 % 79 /min 113 mm[Hg] 76 mm[Hg] Delphine Weathers [facility] 4 17:14:19 Date Recorded Body height Body mass index (BMI) Body weight Heart rate Body temperature Systolic blood pressure Diastolic blood pressure Provider Name and Address Organization Details Last Updated DateTime 4 160.02 cm 40.8 kg/m2 940240. 65 g 84 /min 97.8 [degF] 108 mm[Hg] 73 mm[Hg] Dania Marino LPN [facility] 4 14:03:42 Date Recorded Body height Body mass index (BMI) Body weight Respiratory rate Body temperature Oxygen saturation Oxygen saturation in Arterial blood by Pulse oximetry Heart rate Systolic blood pressure Diastolic blood pressure Provider Name and Address Organization Details Last Updated DateTime 5 160.02 cm 40.9 kg/m2 699889. 19 g 18 /min 98 [degF] 98 % 98 % 80 /min 112 mm[Hg] 78 mm[Hg] Delphine Weathers [place] - [facility] 5 15:00:41 Social History Question Answer Notes LastModified by Organizat ion Details LastModified Time Tobacco Smoking Status Never Smoker Shira Summers maxim, [place] - [facility] 07/01/2015 10:35:19 Are You Blind Or Do You Have Difficulty Seeing? No Information not available 04/27/2021 Is Blood Transfusion Acceptable In An Emergency? Yes Information not available 03/24/2020 What Is Your Level Of Caffeine Consumption? Occasional Information not available 03/24/2020 How Much Tobacco Do You Chew? None Information not available 03/24/2020 What Type Of Diet Are You Following? REGULAR Information not available 03/24/2020 Which Illicit Or Recreational Drugs Have You Used? None Information not available 03/24/2020 Education 12 Information no t available 03/24/2020 Are There Any Guns Present In Your Home? No Information not available 04/27/2021 Live Alone Or With Others? Alone Information not available 03/24/2020 What Was The Date Of Your Most Recent Tobacco Screening? 07/25/2024 [email or web address] Information not available 07/25/2024 How Many Children Do You Have? 0 Information not available 04/20/2020 Performs Monthly Self-breast Exam? Yes Information no t available 03/24/2020 Do You Use Protection During Sex? Usually Information not available 03/24/2020 What Is Your Relationship Status? Single Information not available 03/24/2020 Seat Belts Used Routinely Yes Information not available 03/24/2020 Are You Sexually Active? Yes Information not available 03/24/2020 Do You Have Smoke And Carbon Monoxide Detectors In Your Home? Yes Information not available 04/27/2021 Are You Passively Exposed To Smoke? No Information no t available 04/27/2021 How Much Tobacco Do You Smoke? No [email or web address] Information not available 07/10/2018 General Stress Level Medium Information not available 03/24/2020 Do You Use Sunscreen Routinely? No Information not available 03/24/2020 Has Tobacco Cessation Counseling Been Provided? No [email or web address] Information not available 10/04/2020 On What Date Was Tobacco Cessation Counseling Provided? 07/25/2024 [email or web address] Information not available 07/25/2024 Sex: Female Functional Status Question Answer Note LastModified by Organizat ion Details LastModified Time Do you use any illicit or recreational drugs? No [email or web address] Information not available 10/04/2020 Do you or have you ever used any other forms of tobacco or nicotine? No [email or web address] Information not available 10/04/2020 What is your level of alcohol consumption? None Information not available 03/24/2020 Do you or have you ever used smokeless tobacco? Never used smokeless tobacco Information not available 03/24/2020 Are you currently employed? Yes Information not available 03/24/2020 Are you able to care for yourself? 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 Never used electronic cigarettes Information not available 03/24/2020 What is your exercise level? Occasional Information not available 03/24/2020 Mental Status Question Answer Note LastModified by Organization D etails LastModified Time Do you feel stressed (tense, restless, nervous, or anxious, or unable to sleep at night)? [id number] Information not available 04/27/2021 Family History Relationship Description Onset Age of this Age Resolved Age Notes LastModified by Organization Details LastModified Time Sister Asthma Not available 12/21/2015 14:47:49 Mother Hypertensive disorder [email or web address] Not available 12/20 14:47:49 Mother Bronchitis Not avail able 12/21/2015 14:47:49 Maternal Grandmother Hypertensive disorder [email or web address] Not available 12/20 14:47:49 Maternal Grandmother Heart disease [email or web address] Not available 12/20 14:47:49 Maternal Grandmother Chronic obstructive pulmonary disease sridhar Not available 2018 10:36:41 Medical History Condition Response Coronary Artery Disease N Other Y Atrial Fibrillation N High Blood Pressure N Depression N COPD N Blood Clots N Anxiety Disorder N Muscle, Joint, or Bone Problems N Acid Reflux (GERD) N Cancer N Stroke N Headaches Y Kidney or Bladder Problems N Skin Problems N Asthma N Allergies N Hepatitis N High Cholesterol N Liver Disease N Thyroid Problems N GI Problems N Anemia Y Heart Attack (IA) N Diabetes N Blood Transfusions Y Seizures/Epilepsy N Osteoporosis N Heart Failure N Gynecological History Statement/Question Response Flow Moderate Date of LMP 03/25/2018 On BCP's at Conception? N STIs/STDs Y HPV Vaccine Y Duration of Flow (days) 3 Age at Menarche 11 Current Control Method Condoms Frequency of Cycle (Q days) 28 Sexually Active? N Menses Monthly N Date of Last Pap Smear Sexual Problems? N LMP Approximate Desired Control Method Condoms Obstetrics History GPAL:G 0 P 0 0 0 0 Immunizations Vaccine Type Date Status Note Provider Nam e and Address Organization Details Recorded Time meningococcal MCV4P 8 completed Not Available [facility] 06/07/2019 02:35:58 Tdap 3 completed AGNES GUSTAFSON NP Attn: [address] [place], [address], [place] [facility] 03/19/2023 23:45:33 DTaP, unspecified formulation 2 completed AGNES GUSTAFSON NP Attn: Accounting[address] [place], [address], [place] [facility] 04/10/2023 17:21:28 DTaP, unspecified formulation 3 completed AGNES GUSTAFSON NP Attn: Accounting,[address] [place], [address], [place] [facility] 04/10/2023 17:21:28 DTaP, unspecified formulation 4 completed AGNES GUSTAFSON NP Attn: Accounting,[address] [place], [address], [place] [facility] 04/10/2023 17:21:28 DTaP, unspecified formulation 7 completed AGNES GUSTAFSON NP Attn: Accounting,[address], [place], [address], [place] [facility] 04/10/2023 17:21:28 Tdap 3 completed AGNES GUSTAFSON NP Attn: Accounting,[address] [facility], [place], [address], [place] [facility] 04/10/2023 17:21:28 IPV 2 completed Ara Ryder [place] [facility] 09/04/2016 15:25:44 IPV 3 completed [place] Ry[place] [facility] 09/04/2016 15:25:50 IPV 4 completed AGNES GUSTAFSON NP Attn: Accounting,[address] [facility], [place], [address], [place] [facility] 04/10/2023 17:21:28 IPV 7 completed AGNES GUSTAFSON NP Attn: Accounting,[address] [facility], [place], [address], [place] [facility] 04/10/2023 17:21:28 Hib, unspecified formulation 2 completed AGNES GUSTAFSON NP Attn: Accounting,[address] [facility], [place], [address], [place] [facility] 04/10/2023 17:21:28 Hib, unspecified formulation 3 completed AGNES GUSTAFSON NP Attn: Accounting,[address] [facility], [place], [address], [place] [facility] 04/10/2023 17:21:28 Hib, unspecified formulation 4 completed [place] Ry[place] [facility] 09/04/2016 15:26:15 Pneumococcal Conjugate, unspecified formulation 4 completed [place] [facility] 09/04/2016 15:26:41 Hep B, unspecified formulation 2 completed AGNES GUSTAFSON NP Attn: Accounting,[address] [facility], [place], [address], [place] [facility] 04/10/2023 17:21:28 Hep B, unspecified formulation 2 completed AGNES GUSTAFSON NP Attn: Accounting,[address] [facility], [place], [address], [place] [facility] 04/10/2023 17:21:28 Hep B, unspecified formulation 3 completed AGNES GUSTAFSON NP Attn: Accounting,[address] [facility], [place], [address], [place] [facility] 04/10/2023 17:21:28 Hep B, unspecified formulation 4 completed AGNES GUSTAFSON NP Attn: Accounting,[address] [facility], [place], [address], [place] [facility] 04/10/2023 17:21:28 MMR 2 [place] [facility] 09/04/2016 15:27:21 MMR 7 completed [place] Ry[place] [facility] 09/04/2016 15:27:24 varicella 4 [place] [facility] 09/04/2016 15:27:35 varicella 7 [place] [facility] 09/04/2016 15:27:39 meningococcal ACWY, unspecified formulation 4 completed AGNES GUSTAFSON NP Attn: Accounting,[address] [facility], [place], [address], [place] [facility] 04/10/2023 17:21:28 Hep A, unspecified formulation 7 completed AGNES GUSTAFSON NP Attn: Accounting,[address] [facility], [place], [address], [place] [facility] 04/10/2023 17:21:28 Hep A, unspecified formulation 3 completed AGNES GUSTAFSON NP Attn: Accounting,[address] [facility], [place], [address], [place] [facility] 04/10/2023 17:21:28 HPV, unspecified formulation 3 completed AGNES GUSTAFSON NP Attn: Accounting,[address] [facility], [place], [address], [place] [facility] 04/10/2023 17:21:28 HPV, unspecified formulation 4 completed ANGES GUSTAFSON NP Attn: Accounting,[address] [facility], [place], [address] [place] [address], [place] [facility] 04/10/2023 17:21:28 HPV, unspecified formulation 5 completed AGNES GUSTAFSON NP Attn: Accounting,[address] [facility], [place], [address] [place] [address], [place] [facility] 04/10/2023 17:21:28 influenza, unspecified formulation 6 completed AGNES GUSTAFSON NP Attn: Accounting,[address] [facility], [place], [address], [place] [facility] 04/10/2023 17:21:28 influenza, unspecified formulation 1 completed AGNES GUSTAFSON NP Attn: Accounting,[address] [facility], [place], [address], [place] [facility] 04/10/2023 17:21:28 Influenza, split virus, quadrivalent, preservative 7 completed AGNES GUSTAFSON NP Attn: Accounting,[address] [facility], [place], [address], [place] [facility] 04/10/2023 17:21:28 Past Encounters Encounter ID Performer Location Encounter Start Date Encounter Closed Date Diagnosis/Indication Diagnosis SNOMED-CT Code Diagnosis ICD10 Code Diagnosis Note [id number] MD Suleiman Magaña (MEGA 104) [address] [facility] [place] [address] 07/01/2015 10:24:28 07/02/2015 03:48:02 Well child 332247252 Z00.129 Discussed healthy diet and exercise. She is UTD on immunizati ons. Irregular periods 999237 07 N92.6 Will check labs today. Should continue to track menses. Anxiety 52738369 F41.9 Discussed panic attacks and ways to calm herself. Discussed healthy eating habbits. Sleep patterns may be related to high stress and anxiety. [id number] MD Suleiman Magaña e FP (MEGA 104) [address] [facility] [address] 07/30/2015 16:12:16 08/02/2015 10:06:48 History and physical examination, sports participation 246208214 Z02.5 Ok for sports participat ion. Paperwork completed and given to patient. [id number] MD Suleiman Oconnor FP (MEGA 104) [address] [facility] [address] 11/05/2015 10:27:37 11/08/2015 09:27:37 Irregular periods 84867419 N92.6 Will send for STAT CBC, encouraged increased fluid intake. Will give Provera to stop bleeding, notify office if bleeding has not stopped by Sunday. To ER for increased dizziness and or syncope. [id number] MD Suleiman Oconnor FP (MEGA 104) [address] [facility] [address] 11/29/2015 11:30:15 11/30/2015 09:25:44 Iron deficiency anemia 00086150 D50.9 Will repeat CBC today. Will add Colace to iron for constipati on. Generalized headache 162 729295 R51 Will try OTC medication for headache relief. Also needs updated eye exam, wears glasses but has lost hers. Also wears her hair in eleanor and sometimes in a bun. Dysfunctio nal uterine bleeding 27463054 N93.8 Per [facility], should skip placebo pill in OCP pack for 6 months to prevent excessive bleeding. [id number] MD Suleiman Oconnor FP (MEGA 104) [address] [facility] [address] 12/21/2015 14:26:41 12/22/2015 10:09:02 Dysfunctional uterine bleeding 17427277 N93.8 Discussed abnormal bleeding on OCP. Should report back to office for bleeding more than 7 days or saturating a pad every hour or needing double protection . Hgb was improved and she is taking iron without difficulty . If she begins bleeding again will refer to DISCOUNT CLERK. [id number] MD Suleiman Oconnor e FP (MEGA 104) [address] [place] [address] 03/15/2016 10:14:19 03/16/2016 10:23:34 Well child 316940621 Z00.129 Breast exam normal. Discussed healthy diet and exercise. She is UTD on immunizati ons. No problems with current medication s. See back yearly and as needed. Dysfunctio nal uterine bleeding 19375801 N93.8 Stable on OCP. Should report back to office for bleeding more than 7 days or saturating a pad every hour or needing double protection . Hgb was improved and she is taking iron without difficulty . [id number] MD Suleiman Oconnor e FP (MEGA 104) [address] [place] [address] 07/10/2016 11:05:15 07/11/2016 10:35:41 Dysfunctional uterine bleeding 23992841 N93.8 Will refer to DISCOUNT CLERK for further work-up. [id number] TRACY Beard FP (MEGA 104) [address] [place] [address] 03/07/2017 16:54:45 03/12/2017 10:08:32 Well child 212964567 Z00.129 Immunizati ons are up to date.Discu ssed anticipato ry guidance for age, including safety and healthy diet and exercise.S ee back yearly and as needed. [id number] MD Suleiman Grant FP (MEGA 104) [address] [place] [address] 11/02/2017 09:50:04 11/02/2017 16:52:42 Dysfunctional uterine bleeding 25535532 N93.8 Fatigue 82560793 R53.83 Irregular periods 681190 07 N92.6 [id number] TRACY Beard e FP (MEGA 104) [address] [place] [address] 01/14/2018 17:06:30 01/17/2018 13:07:54 Viral gastroenteritis 752717885 A08.4 -Advance diet as tolerated. -Symptom management , good handwashin g to prevent spread Active or passive immunization 726695151 Z23 [id number] Kvng Bui MD [facility] ([facility]) [address] [place], [place] [address] 07/10/2018 10:34:25 07/11/2018 03:46:46 Pain in right foot 2029249921 41847 M79.671 Well child 946286155 Z00 .091 [id number] Kvng Bui MD [facility] ([facility]) [address] [place] [address] 8 07/19/2018 12:33:32 07/22/2018 10:11:56 Gastroesophageal reflux disease 560459568 K21.9 Dysphagia 94049696 R13.1 0 Pain in right foot 53590 37831 65862 M79.670 [id number] Jacob Kahn MD [facility] (DISCOUNT CL[facility]) [address] [place], [place] [address] 01/15/2019 16:57:18 01/16/2019 13:40:22 Abnormal uterine bleeding 6065420335 9100 N93.9 --long history since menarche-- denies prior sexual activity and she declines STD testing--p reviously on OCPs but noncomplia nt, now requests to start Nuvaring Menorrhagia 935196538 N9 2.0 --occasion al heavy bleeding with lightheade dness, not at present--h istory of blood transfusio n in past [id number] JEANNIE Sheppard NP [facility] ([facility]) [address] [place], [place] [address] 04/07/2019 14:31:26 04/09/2019 15:18:28 Chest pain 41276045 R07.9 Gastroesop hageal reflux disease 512669008 K21.9 Fatigue 79887268 R53.83 [id number] Jacob Kahn MD [facility] (DISCOUNT CLERK) [address] [place], [place] [address] 07/31/2019 13:50:29 08/05/2019 16:16:20 Contraception care 883669759 Z30.40 as above--to use continuous ly Abnormal u terine bleeding 5924700642 9100 N93.9 --long history since menarche-- denies prior sexual activity and she declines STD testing--p reviously on OCPs but noncomplia nt, started on Nuvaring 01/15/2019 and is very happy with it, needs refill--se e below Menorrhagia 455829630 N9 2.0 --occasion al heavy bleeding with lightheade dness, in the past--hist ory of blood transfusio n in past--norm al hgb/hct 01/15/2019 [id number] Kvng Bui MD [facility] ([facility]) [address] [place] [address] 09/10/2019 10:24:42 09/14/2019 23:42:10 Heartburn 62808933 R12 Anxiety 60515470 F41.9 [id number] Jacob Kahn MD [facility] (DISCOUNT CLERK) [address] [place] [address] 03/24/2020 17:57:39 03/25/2020 08:42:34 Venereal disease screening 671431510 Z11.3 Z72.51 --requests STD check Family juliann nning education 078661398 Z30.02 --not actively attempting but also not wanting contracept ion--will take PNV daily in case of accidental conception Vaginal discharge 606207 006 N89.8 --c/o couple days of discharge but is also bleeding-- no itch/odor/ pelvic pain--wet mount/LUCIA negative [id number] Jacob Kahn MD [facility] (DISCOUNT CLERK) [address] [place] [address] 05/19/2020 13:37:42 05/20/2020 06:56:45 Vaginal odor 232723334 N89.8 per patient which develops a few hours after showeringn egative exam Morbid obesity 307865388 E66.9 --BMI 37.2 Body mass index 30+ - obesity 528781437 Z68.37 [id number] Kvng Bui MD Suleiman morrissey ([facility]) [address] [place], [place] [address] 10/04/2020 11:46:32 10/06/2020 00:41:06 Obesity 234829730 E66.9 History an d physical examination, [facility] 50806515 Z02.0 [id number] Rigo Sagastume MD [address] [address] 11/10/2020 18:30:40 11/11/2020 14:57:26 Obesity 112745166 E66.9 Tuberculos is screening 649011656 Z11.1 [id number] Jacob Kahn MD Suleiman [facility] (DISCOUNT CLERK) [address] [place], [place] [address] 11/12/2020 10:31:17 11/16/2020 06:17:49 Abnormal uterine bleeding 6731293805 9100 N93.9 --long history since menarche but now reports latest episode daily but very light since 10/07/20--p reviously on OCPs but noncomplia nt, started on Nuvaring 01/15/2019 and was very happy with it, but then decided to stop in approx 01/2020--al so c/o hair on chin worsening lately and has gained 45lbs since FSH-TSH-pr olactin-to marlyn testostero ne last checked 12/2018 Female hirsutism 7356647 9 L68.0 as above Venereal d isease screening 910547120 Z11.3 Z72.51 --requests STD check Pain in pelvis 14251106 R10.2 --long history intermitte nt mild pains--exa m negative-- pt declines pelvic ultrasound at this time [id number] Kvng Bui MD Suleiman morrissey ([facility]) [address] [place] [address] 04/27/2021 14:54:36 05/18/2021 11:00:18 Obesity 643689697 E66.9 Vitamin D deficiency 347 71691 E55.9 Depression screening 171 736319 Z13.31 [id number] AGNES GUSTAFSON NP [facility] ([facility]) [address] [place] [address] 8 07/26/2022 17:04:43 07/27/2022 08:22:34 Low back pain 386587503 M54.50 Abnormal posture 3383255 2 R29.3 Adult heal th examination 073419262 Z00.00 Pt to have routine labs completed. Will notify of results.Ed ucated patient on diet (Mediterra nean) and exercise (30-60 min daily)Disc ussed medication adherence. Pt verbalized understand ing. Obesity 376467751 E66.9 Pt to begin to engage in the following: -Healthy sleep hygiene (phone put away at night, lights out, set bedtime with at least 8 hours sleep)-Exe rcise 30-60 min daily-Make healthy diet choices (Mediterra nean)-Drin k only water or green tea Iron defic iency anemia 05154722 D50.9 Irregular periods 188448 07 N92.6 Macromastia 354250449 N6 2 [id number] Kvng Bui MD [facility] ([facility]) [address] [place] [address] 8 08/04/2022 16:31:02 08/08/2022 11:15:44 Iron deficiency anemia 63933058 D50.9 Intermitte nt palpitations 251752739 R00.2 Vitamin D deficiency 347 42802 E55.9 [id number] Kvng Bui MD [facility] ([facility]) [address] [place] [address] 8 09/22/2022 10:38:16 09/26/2022 12:41:36 Iron deficiency anemia 43297434 D50.9 Pt to eat foods high in iron (sunflower seeds, prunes, liver, unsulfured blackstrap molasses, cream of wheat, spinach and other leafy greens)Pt to notify if there is presence of blood in stool or vomit, coffee ground emesis, or worsening fatigue. Obesity 079362816 E66.9 Pt to begin to engage in the following: -Healthy sleep hygiene (phone put away at night, lights out, set bedtime with at least 8 hours sleep)-Exe rcise 30-60 min daily-Make healthy diet choices (Mediterra nean)-Drin k only water or green tea Decreased hearing 921919 001 H91.90 Pt to follow up with audiologis t for hearing screening and testing to determine extent of hearing lossDiscus sed negative exam [id number] MD Suleiman Loja FP (MEGA 104) [address] [place] [address] 03/15/2023 16:57:28 03/20/2023 10:26:44 Tuberculosis screening 082062596 Z11.1 Adult [facility] th examination 230124786 Z00.00 Pt to have routine labs completed. Will notify of results.Ed ucated patient on diet (Mediterra nean) and exercise (30-60 min daily)Disc ussed medication adherence. Pt verbalized understand ing. Prediabetes 139301186 R7 3.03 Iron defic iency anemia 89274491 D50.9 Morbid obesity 024016784 E66.01 Pt to begin to engage in the following: -Healthy sleep hygiene (phone put away at night, lights out, set bedtime with at least 8 hours sleep)-Exe rcise 30-60 min daily-Make healthy diet choices (Mediterra nean)-Drin k only water or green tea [id number] MD Suleiman Loja FP (MEGA 104) [address] [place] [address] 04/10/2023 17:09:34 04/16/2023 15:51:43 Tuberculosis screening 621240118 Z11.1 Morbid obesity 937688502 E66.01 Pt to begin to engage in the following: -Healthy sleep hygiene (phone put away at night, lights out, set bedtime with at least 8 hours sleep)-Exe rcise 30-60 min daily-Make healthy diet choices (Mediterra nean)-Drin k only water or green tea [id number] Kvng Bui MD Suleiman morrissey ([facility]) [address] [place] [address] 10/30/2023 16:55:57 10/31/2023 11:34:15 Morbid obesity 552242287 E66.01 Pt to begin to engage in the following: -Healthy sleep hygiene (phone put away at night, lights out, set bedtime with at least 8 hours sleep)-Exe rcise 30-60 min daily-Make healthy diet choices (Mediterra nean)-Drin k only water or green tea Persistent insomnia 1919 67500 G47.09 Plan of care: -Will refer to pulmonolog y for sleep study -Start patient on trazodone -Patient to follow-up in the office if symptoms are persistent persistent or do not resolve. Fatigue 50409125 R53.83 Discussed with patient the following: -ensuring 8 hours of sleep nightly-en suring not skipping meals and eating at least three balanced meals daily-gett ing regular exercise-h ydrating with at least 2 L of water daily.-inc orporating fresh fruits and vegetables into diet with lean meat Nocturia 028925238 R35.1 Plan of care:-Last A1C 5.2-Check UA with culture- jacques CMP-Will consider referral to urology if ongoing. [id number] [facility]ng [facility]ui [facility] [address] [place] [address] 8 05/02/2024 13:37:20 05/07/2024 14:31:55 Tuberculosis screening 896864082 Z11.1 Palpitations 46714525 R0 0.2 Plan of care:-chec k labs on patient-st op caffeine-c ardiology referral Morbid obesity 012890151 E66.01 Pt to begin to engage in the following: -Healthy sleep hygiene (phone put away at night, lights out, set bedtime with at least 8 hours sleep)-Exe rcise 30-60 min daily-Make healthy diet choices (Mediterra nean)-Drin k only water or green tea [id number] Kvng Bui [facility] ([facility]) [address] [place] [address] 07/25/2024 14:51:41 07/29/2024 16:20:33 Morbid obesity 569669634 E66.01 Pt to begin to engage in the following: -Healthy sleep hygiene (phone put away at night, lights out, set bedtime with at least 8 hours sleep)-Exe rcise 30-60 min daily-Make healthy diet choices (Mediterra nean)-Michelle perez only water or green tea Mixed anxi ety and depressive disorder 621365734 F41.8 PHQ9: 18GAD7: 18 Plan of care:-star t venlafaxin e. Pt agreed to start after her trip next week and will utilize hydorxizin e while she is out of town for siutationa l panic attacks.-f ollow up with psychiatry -make appt with counselor- go to ER if SI/HI or worsening of symptoms occur.-justine low up in clinic in one month. Situationa l panic attack 753108916 F41.0 Plan of care:-util ize hydroxyzin e PRN. avoid alcohol-di scussed considerat ion of follow up with counselor- pt to do deep breathing exercises when having panic attacks (discussed boxed breathing) -follow up in the clinic if worsening of symptoms. Health Concerns Section Related Observation LastModified by Organization Detai ls LastModified Time None Recorded Concern Status LastModified by Organization Details LastModified Time None Recorded Advance Directives Directive None Recorded Payers Encounter Date Sequence Insurance Name Policy Number Policy Rich Covered Member ID Rich Member ID Guarantor Name 03/15/2023 1 [facility] ON OR AFTER 11/18/20 (MEDICAID REPLACEMENT - HMO) Reza Aviles [id number] Rosemary Rollins 04/10/2023 1 [facility] ON OR AFTER 11/18/20 (MEDICAID REPLACEMENT - HMO) Reza Aviles [id number] Rosemary Rollins 10/30/2023 1 [facility] ON OR AFTER 11/18/20 (MEDICAID REPLACEMENT - HMO) Reza Aviles [id number] Rosemary Rollins 05/02/2024 1 [facility] ON OR AFTER 11/18/20 (MEDICAID REPLACEMENT - HMO) Reza Aviles [id number] Rosemary Rollins 07/25/2024 1 [facility] ON OR AFTER 11/18/20 (MEDICAID REPLACEMENT - HMO) Reza Aviles [id number] Rosemary Rollins Notes Date Note Type Note Provider Name and Address Organization Details Recorded Time 03/15/2023 text/html The patient presents to the office for a routine office visit. She is here for TB screening for school. She denies additional symptoms or concerns. AGNES GUSTAFSON NP Attn: [address]ing[address] [facility], [place], [address], [place] [facility] 03/19/2023 23:47:25 04/10/2023 text/html The patient presents to the office for a routine office visit for screening (TB) for school. She denies additional issues or concerns. AGNES GUSTAFSON NP Attn: Accounting,[address] [facility], [place], [address], [place] [facility] 04/15/2023 10:31:38 10/30/2023 text/html The patient presents the office for routine office visit. She states that she has been having trouble sleeping at night and wakes up with fatigue in the morning and remains present throughout the day. She would also like to discuss weight loss. She states that she would like to start eating healthier and exercising. She does endorse getting up frequently to go to the bathroom at night recently. She denies additional symptoms. AGNES GUSTAFSON NP Attn: Accounting,[address] [facility], [place], [address], [place] [facility] 10/31/2023 06:50:24 05/02/2024 text/html The patient presents to the office for a routine office visit. She is complaining of heart palpitations but denies CP, SOB, or additional symptoms. She denies any cardiac hx. She denies additional symptoms. She needs a TB test for school. AGNES GUSTAFSON NP Attn: Accounting,[address] [facility], [place], [address], [place] [facility] 05/06/2024 08:57:30 07/25/2024 text/html The patient presents to the office for a routine office visit. She has a hx of mixed anxiety and depressive disorder and also endorses intermittent panic attacks. She stated that she is going out of town this weekend with her boyfriend to [facility] and is concerned about being anxious when having to be around people. She denies SI/HI or additional symptoms. AGNES GUSTAFSON NP Attn: Accounting,[address], [place], [address], [place] [facility] 07/29/2024 08:54:06 OBGyn Episode No OBEpisode recorded.
--- OUTSIDE RECORDS SUMMARY | 2024-09-29 17:54 | XMS_ITS | Data Portability ---
Author Organization [employer] , [facility] Address [address] [place] [address] Care Team Providers Care Coil Binder Name Role Phone [facility] C[facility] Specialist Assessment Encounter Date Assessment Date Assessment LastModified by Organization Details LastModified Time 05/15/2024 05/15/2024 A 24-year-old female with a history of menstrual irregularities presents with pelvic pain and amenorrhea The pelvic pain is consistent with a cramp-like discomfort localized to the ovary area bilaterally, with no associated symptoms of severe exacerbation or significant bleeding patterns. The patient has not experienced any remarkable or abnormal vaginal bleeding, discharge, or urinary symptoms. The contraceptive ring s correlation with pain onset is noted, and its consistent usage suggests the potential influence on menstrual regularity. Not available 05/16/2024 15:59:33 Plan of Treatment Reminders Order Date Submit Date Provider Last Modified By Organization Details Last Modified Time Details Appointments None recorded. Lab bacterial vaginosis + vaginitis panel, vaginal 2023 024 [facility], [address] [place], [address], 4 08:41:39 pap, LB 2023 024 [employer] [facility], [address] [place], [address], 4 18:22:37 insulin, serum 2023 024 [employer] [facility], [address] [place], [address], 4 18:22:37 CBC w/ auto diff 2023 024 [employer] [facility], [address] [place], [address], 4 10:34:41 testosteron e, free + total, serum 2022 023 [employer] [facility], [address] [place], [address], 3 14:50:02 estradiol, serum 2022 [address] [facility] [facility], [address] [place], [address], 3 14:50:01 insulin, serum 2022 023 [employer] [facility], [address] [place], [address], 3 14:50:00 pap, LB 2022 023 [employer] [facility], [address] [place], [address], 3 14:49:59 unlisted lab - Pap reflex hold 2022 023 [email or web address] [place], [address] [place], [address], 3 16:23:39 bacterial vaginosis + vaginitis panel, vaginal 2022 023 [facility], [address] [place], [address], 3 10:02:54 insulin, serum 2022 023 [facility], [address] [place], [address], 3 15:34:48 magnesium, serum or plasma 2022 023 [facility], [address] [place], [address], 3 15:34:48 vitamin B12, serum 2022 023 [facility], [address] [facility], [place], [address], 3 15:34:49 Referral None recorded. Procedures None recorded. Surgeries None recorded. Imaging US, transvagina l 2023 024 PAULY Not available 4 06:38:54 US, transvagina l 2021 022 [email or web address] Not available 2 09:37:34 Medication Orders semaglutide (weight loss) 0.25 mg/0.5 mL subcutaneou s pen injector 2023 024 [email or web address] 8 [facility], [address] [place] [address], [address], 4 11:21:29 metformin 850 mg tablet 2022 023 [email or web address] 8 [facility], [address] [place] [address], [address], 4 11:21:22 Gabriella (28) 3 mg-0.03 mg tablet 2021 022 [facility], [address] [place], [address], 3 18:22:32 metformin 850 mg tablet 2021 022 [email or web address] 8 [facility], [address] [place] [address], [address], 4 11:21:22 Patient TargetsNo targets recorded. Patient Instructions Encounter Date Encounter Id Patient Instructions Last Modified By Organization Details Last Modified Time 02/05/2023 [id number] Patient Health Questionnaire-9* [email or web address] Not available 02/05/2023 16:19:42 eating healthy foods: care instructions Not available 02/15/2023 15:08:15 weight managemen t education Not available 02/05/2023 15:51:16 11/02/2023 [id number] body mass index: care instructions Not available 11/06/2023 13:17:22 learning about healthy weight Not available 11/06/2023 13:17:23 iron deficiency anemia: care instructions Not available 11/02/2023 16:28:25 *Become more active Many types of physical activity can help, including walking. You can start with a few minutes a day and add more as you get stronger and build up your endurance. Anything that gets your body moving is good for you. *Improve your diet It is healthy to have regular meal times, eat smaller portions, and not skip meals. Limit sweets, and avoid processed foods. Try to eat more vegetables and fruits instead Not available 11/06/2023 13:15:21 * Class III obesity (BMI 42.7): Discussed goal to have lifestyle changes (versus diet ) to establish healthy weight to reduce health risks. * Counseled on importance of exercise in cardiovascular health and risk reduction, will try walks 3 to 4 days per week. * Diet counseling done, discussed limiting simple carbs, sodas, and sweets, increasing lean proteins and vegetables in diet. Discussed obesity as risk factor for future health risks including but not limited to HTN, DM, CAD, CVA, arthritis/joint disease, and some cancers. * Discussed medical tx options, including Contrave,GLP-1 agonists, Orlistat, and phentermine; phentermine/topira mate. Opted to try semaglutide --- *no h/o cardiovascular disease or HTN; * discussed R/B and timing/dosing of medication, * discussed short-term tx- 12 weeks- in addition to diet changes and exercise, * discussed calorie intake vs expenditure- 500 leandra daily deficit required to lose 1 lbs/week * Seek medical help if chest pain/pressure, shortness of breath, dizziness, tiredness, shakiness, and mood changes. * f/u in 1 month Not available 11/06/2023 13:10:28 05/15/2024 [id number] - Continue using the vaginal contraceptive ring as prescribed and monitor menstrual patterns. - Report any new or worsening symptoms, such as significant pain, abnormal bleeding, or other concerns. - Follow up with any further appointments or evaluations as recommended. Not available 05/16/2024 16:03:38 In discussing th e primary concerns with the patient, I explained the potential causes of her pelvic pain and amenorrhea, including ovarian cysts and contraceptive usage. The possibility of performing a vaginal swab and routine STD testing was also considered as part of a comprehensive assessment. The patient was informed of the normal results of her recent Pap smear and reassured that there are no current indicators of significant reproductive health issues. Not available 05/16/2024 16:04:26 Reason for Referral None Reported. Results Created Date Observation Date Name Description Value Unit Range Abnormal Flag Note LastModifiedBy Organization Detail LastModifiedTime 04/02/2004/02/2022 CBC (INCL UDES DIFF/ PLT) white blood cell count 7.7 thous and/u L 3.8-10 .8 normal Not Available [facility] [id number] [place] [address], [address], 04/02/2022 17:11:18 04/02/20 22 04/02/2022 CBC (INCL UDES DIFF/ PLT) red blood cell count 4.85 klarissa on/uL 3.80-5 .10 normal Not Available [facility] [address] [place], [address], 04/02/2022 17:11:18 04/02/20 22 04/02/2022 CBC (INCL UDES DIFF/ PLT) hemoglobin 12.0 g/dL 11.7-1 5.5 normal Not Available [facility] [id number] [place] [address], [address], 04/02/2022 17:11:18 04/02/20 22 04/02/2022 CBC (INCL UDES DIFF/ PLT) hematocrit 38.0 % 35.0-4 5.0 normal Not Available [address], [address], 04/02/2022 17:11:18 04/02/20 22 04/02/2022 CBC (INCL UDES DIFF/ PLT) MCV 78.4 fL 80.0-1 00.0 low Not Available [address], [address], 04/02/2022 17:11:18 04/02/20 22 04/02/2022 CBC (INCL UDES DIFF/ PLT) MCH 24.7 pg 27.0-3 3.0 low Not Available [facility] [address], [address], 04/02/2022 17:11:18 04/02/20 22 04/02/2022 CBC (INCL UDES DIFF/ PLT) MCHC 31.6 g/dL 32.0-3 6.0 low Not Available [address], [address], 04/02/2022 17:11:18 04/02/20 22 04/02/2022 CBC (INCL UDES DIFF/ PLT) RDW 14.9 % 11.0-1 5.0 normal Not Available [address], [address], 04/02/2022 17:11:18 04/02/20 22 04/02/2022 CBC (INCL UDES DIFF/ PLT) platelet count 297 thous and/u L 140-40 0 normal Not Available [address], [address], 04/02/2022 17:11:18 04/02/20 22 04/02/2022 CBC (INCL UDES DIFF/ PLT) MPV 10.8 fL 7.5-12 .5 normal Not Available [address], [address], 04/02/2022 17:11:18 04/02/20 22 04/02/2022 CBC (INCL UDES DIFF/ PLT) absolute neutrophils 4289 cells /uL 1500-7 800 normal Not Available [address], [address], 04/02/2022 17:11:18 04/02/20 22 04/02/2022 CBC (INCL UDES DIFF/ PLT) absolute lymphocytes 2757 cells /uL 850-39 00 normal Not Available [address] [place], [address], 04/02/2022 17:11:18 04/02/20 22 04/02/2022 CBC (INCL UDES DIFF/ PLT) absolute monocytes 354 cells /uL 200-95 0 normal Not Available [address] [place], [address], 04/02/2022 17:11:18 04/02/20 22 04/02/2022 CBC (INCL UDES DIFF/ PLT) absolute eosinophils 262 cells /uL 15-500 normal Not Available [address], [address], 04/02/2022 17:11:18 04/02/20 22 04/02/2022 CBC (INCL UDES DIFF/ PLT) absolute basophils 39 cells /uL 0-200 normal Not Available [address], [address], 04/02/2022 17:11:18 04/02/20 22 04/02/2022 CBC (INCL UDES DIFF/ PLT) neutrophils 55.7 % normal Not Available [address], [address], 04/02/2022 17:11:18 04/02/20 22 04/02/2022 CBC (INCL UDES DIFF/ PLT) lymphocytes 35.8 % normal Not Available [address], [address], 04/02/2022 17:11:18 04/02/20 22 04/02/2022 CBC (INCL UDES DIFF/ PLT) monocytes 4.6 % normal Not Available [facility] [place] [address] [place], [address], 04/02/2022 17:11:18 04/02/20 22 04/02/2022 CBC (INCL UDES DIFF/ PLT) eosinophils 3.4 % normal Not Available [facility] [address] [address] [place], [address], 04/02/2022 17:11:18 04/02/20 22 04/02/2022 CBC (INCL UDES DIFF/ PLT) basophils 0.5 % normal Not Available [employer] [place] [address] [address] [place], [address], 04/02/2022 17:11:18 04/02/20 22 04/02/2022 17-HY DROXY PROGE STERO NE 17-hydroxypr ogesterone 36 NG/dL Adult Femal e Refer ence Range s for 17-Hy droxy proge stero ne: Pre-M enopa usal Mid Folli cular : 23-10 2 ng/dL Pre-M enopa usal Surge : 67-34 9 ng/dL Pre-M enopa usal Mid Lutea l: 139-4 31 ng/dL Postm enopa usal Phase : < or = 45 ng/dL Pregn elfego: First Trime ster: 78-45 7 ng/dL Secon d Trime ster: 90-35 7 ng/dL Third Trime ster: 144-5 78 ng/dL This test was devel oped and its franco tical perfo rmanc e dio cteri stics have been deter mined by [facility] [employer] [facility] Hayden . It has not been clear ed or appro jalil by FDA. This assay has been valid ated pursu ant to the CLIA regul ation s and is used for clini leandra purpo ses. Not Available [facility] [place] [address] [place], [address], 04/02/2022 17:11:19 04/02/20 22 04/02/2022 INSUL IN insulin 24.8 uIU/m L high Refer ence Range < or = 19.6 Risk: Optim al < or = 19.6 Moder ate NA High >19.6 Adult cardi ovasc ular event risk categ ory cut point s (opti mal, moder ate, high) are based on [facility] popul ation data from 05/09 11. This insul in assay shows stron g cross -reac tivit y for some insul in analo gs (lisp ro, aspar t, and glarg ine) and much lower cross -reac tivit y with other s (dete nick, gluli sine) . Not Available [facility] [address] [place], [address], 04/02/2022 17:11:19 04/02/20 22 04/02/2022 PROLA CTIN prolactin 10.1 NG/mL normal Refer ence Range Femal es Non-p regna nt 3.0-3 0.0 Pregn ant 10.0- 209.0 Postm enopa usal 2.0-2 0.0 Not Available [facility] [address] [place], [address], 04/02/2022 17:11:20 04/02/20 22 04/02/2022 ESTRA DIOL estradiol 282 pg/mL normal Refer ence Range Folli cular Phase : 19-14 4 Mid-C ycle: 64-35 7 Lutea l Phase : 56-21 4 Postm enopa usal: < or = 31 Refer ence range estab lishe d on post- puber marlyn patie nt popul ation . No pre-p ubert al refer ence range estab lishe d using this assay . For any patie nts for whom low Estra diol level s are antic ipate d (e.g. males , pre-p ubert al child dudley and hypog onada l/pos t-men opaus al femal es), the [facility] t[facility] Estra diol, Ultra sensi tive, LCMSM S assay is recom jose d (orde r code 20408 ). Juan morrissey note: patie nts being treat ed with the drug fulve stran t (Fasl odex( R)) have demon strat ed signi fican t inter feren ce in immun oassa y metho ds for estra diol measu remen t. The cross react ivity could lead to false ly eleva martha estra diol test resul ts leadi ng to an inapp ropri ate clini leandra asses sment of estro gen statu s. [facility] order code [id number] -Estr adiol , Ultra sensi tive LC/MS /MS demon strat es negli gible cross react ivity with fulve stran t. Not Available [facility] [place] [address] [place], [address], 04/02/2022 17:11:20 04/02/20 22 04/02/2022 TSH W/REF JACKIE TO FT4 TSH w/reflex to FT4 2.46 mIU/L normal Refer ence Range > or = 20 Years 0.40- 4.50 Pregn elfego Range s First trime ster 0.26- 2.66 Secon d trime ster 0.55- 2.73 Third trime ster 0.43- 2.91 Not Available [facility] [place] [address] [place], [address], 04/02/2022 17:11:21 04/02/20 22 04/02/2022 FSH AND LH FSH 1.5 mIU/m L normal Refer ence Range Folli cular Phase 2.5-1 0.2 Mid-c ycle Peak 3.1-1 7.7 Lutea l Phase 1.5- 9.1 Postm enopa usal 23.0- 116.3 Not Available [facility] [employer] [facility] [place] [address] [place], [address], 04/02/2022 17:11:21 04/02/20 22 04/02/2022 FSH AND LH LH 0.5 mIU/m L normal Refer ence Range Folli cular Phase 1.9-1 2.5 Mid-C ycle Peak 8.7-7 6.3 Lutea l Phase 0.5-1 6.9 Postm enopa usal 10.0- 54.7 Not Available [employer] [facility] [address] [place], [address], 04/02/2022 17:11:21 04/02/20 22 04/02/2022 HEMOG LOBIN A1C hemoglobin A1C 5.4 %_of_ total _HGB <5.7 normal For the purpo se of scree grayson for the prese nce of diabe anum: <5.7% Consi stent with the absen ce of diabe anum 5.7-6 .4% Consi stent with incre ased risk for diabe anum (pred iabet es) > or =6.5% Consi stent with diabe anum This assay resul t is consi stent with a decre ased risk of diabe anum. Curre ntly, no conse nsus exist s michele abreu use of hemog lobin A1c for diagn osis of diabe aunm in child dudley. Accor ding to Ameri can Diabe anum Assoc iatio n (ADA) guide lines , hemog lobin A1c <7.0% repre sents optim al contr ol in non-p regna nt diabe tic patie nts. Diffe rent metri cs may apply to speci fic patie nt popul ation s. Stand ards of Medic al Care in Diabe anum(A DA). Not Available [facility] [employer] [facility] [address], [place], [address], 04/02/2022 17:11:21 04/02/20 22 04/02/2022 TESTO STERO NE, FREE testosterone , free 8.0 pg/mL 0.2-5. 0 high (Note ) The socorro ntrat ion of free testo stero ne is deriv ed from a mathe matic al model using total testo stero ne by LCMSM S, sex hormo ne nicolasa ng globu nadiya and album in. This test was devel oped and its franco tical perfo rmanc e dio cteri stics have been deter mined by [facility]. It has not been clear ed or appro jalil by the FDA. This assay has been valid ated pursu ant to the CLIA regul ation s and is used for clini leandra purpo ses. F med fusio n [address] [facility] [address] [place] [address] [phone] Larry lewis MD Not Available [facility] [employer] [address] [place], [address], 04/02/2022 17:11:22 04/02/20 22 04/02/2022 TESTO STERO NE, TOTAL , MS testosterone , total, MS 91 NG/dL 2-45 high For addit ional tiffanyr juan peterson refer to https ://ed ucati on.Sound Clips/f aq/To Tasha cleary LCMSM S (This link is being provi ded for infor wilian nal/e ducat ional purpo ses only. ) (Note ) This test was devel oped and its franco tical perfo rmanc e dio cteri stics have been deter mined by [facility]. It has not been clear ed or appro jalil by the FDA. This assay has been valid ated pursu ant to the CLIA regul ation s and is used for clini leandra purpo ses. SIMIN med fusio n [address] [facility] [address] [facility] [place] [facility] [place] [address] [phone] Larry lewis MD NO COLLE CTION DATE RECEI JALIL. WE HAVE USED THE DATE THE SPECI MEN WAS RECEI JALIL BY THIS LABOR ATORY THE COLLE CTION DATE. IF THIS IS INCOR JUAN BARRETO CONTWicho CT CLIEN T SERVI CAL. PHONE ANITA R: [phone] Not Available [facility] [facility] [address], [place], [address], 04/02/2022 17:11:22 02/10/20 23 02/09/2023 THINP REP TIS PAP clinical information: normal None given Not Available [place] [address] [place], [address], 02/09/2023 14:49:59 02/10/2002/09/2023 THINP REP TIS PAP LMP: normal NONE GIVEN Not Available [place] [address] [place], [address], 02/09/2023 14:49:59 02/10/20 23 02/09/2023 THINP REP TIS PAP prev. Pap: normal NONE GIVEN Not Available [address] [place], [address], 02/09/2023 14:49:59 02/10/20 23 02/09/2023 THINP REP TIS PAP prev. BX: normal NONE GIVEN Not Available [place] [address] [place], [address], 02/09/2023 14:49:59 02/10/20 23 02/09/2023 THINP REP TIS PAP source: normal Cervi x Not Available [address] [place], [address], 02/09/2023 14:49:59 02/10/2002/09/2023 THINP REP TIS PAP statement of adequacy: Speci men proce ssed and exami lexie, but unsat isfac tory for evalu ation due to an insuf ficie nt numbe r of squam ous cells . Not Available [place] [address] [place], [address], 02/09/2023 14:49:59 02/10/2002/09/2023 THINP REP TIS PAP interpretati on/result: Cytol ogy Resul ts: Unabl e to provi de inter preta tion due to unsat isfac tory speci men adequ acy. Not Available [place] [place], [address], 02/09/2023 14:49:59 02/10/20 23 02/09/2023 THINP REP TIS PAP comment: normal This Pap test has been evalu ated with compu rosario techn ology . Micro scopi c featu res sugge stive of maureen champion. [facility] akira jelli es may inter fere with slide prepa ratio n; their use is not recom jose d. Not Available [place] [address] [place], [address], 02/09/2023 14:49:59 02/10/20 23 02/09/2023 THINP REP TIS PAP cytotechnolo gist: normal DEL CASTILLO, CT( CP) CT Scree grayson locat ion: [address] [place] [address] Not Available [place] [address] [place], [address], 02/09/2023 14:49:59 02/10/20 23 02/09/2023 THINP REP TIS PAP review cytotechnolo gist: normal TMK, CT( CP) CT scree grayson locat ion: [place] [address] [place] [address] Not Available [place] [place], [address], 02/09/2023 14:49:59 02/10/20 23 02/09/2023 THINP REP TIS PAP comment EXPLA NATOR Y NOTE: The Pap is a scree grayson test for cervi leandra cance r. It is not a diagn ostic test and is subje ct to false negat janae and false posit janae resul ts. It is most relia ble when a satis facto ry sampl e, regul yari obtai lexie, is submi tted with relev ant clini leandra findi ngs and histo ry, and when the Pap resul t is evalu ated along with histo aida and curre nt clini leandra infor matio n. Not Available [address] [place], [address], 02/09/2023 14:49:59 02/10/20 23 02/09/2023 INSUL IN insulin 99.9 uIU/m L high Refer ence Range < or = 18.4 Risk: Optim al < or = 18.4 Moder ate NA High >18.4 Adult cardi ovasc ular event risk categ ory cut point s (opti mal, moder ate, high) are based on Insul in Refer ence Inter tenzin studi es perfo rmed at [facility] in 2021. Not Available [facility] [employer] [facility] [address], [place], [address], 02/09/2023 14:50:00 02/10/2002/09/2023 ESTRA DIOL estradiol 16 pg/mL normal Refer ence Range Folli cular Phase : 19-14 4 Mid-C ycle: 64-35 7 Lutea l Phase : 56-21 4 Postm enopa usal: < or = 31 Refer ence range estab lishe d on post- puber marlyn patie nt popul ation . No pre-p ubert al refer ence range estab lishe d using this assay . For any patie nts for whom low Estra diol level s are antic ipate d (e.g. males , pre-p ubert al child dudley and hypog onada l/pos t-men opaus al femal es), the [facility] tute Estra diol, Ultra sensi tive, LCMSM S assay is recom jose d (orde r code 12502 ). Pleas e note: patie nts being treat ed with the drug fulve stran t (Fasl odex( R)) have demon strat ed signi fican t inter feren ce in immun oassa y metho ds for estra diol measu remen t. The cross react ivity could lead to false ly eleva martha estra diol test resul ts leadi ng to an inapp ropri ate clini leandra asses sment of estro gen statu s. [facility] order code [id number] -Estr adiol , Ultra sensi tive LC/MS /MS demon strat es negli haleigh cross react ivity with rosa moore. Not Available [facility] [address], [place], [address], 02/09/2023 14:50:01 02/10/20 23 02/09/2023 TESTO STERO NE, FREE (DIAL YSIS) AND TOTAL ,MS testosterone , total, MS 20 NG/dL 2-45 For addit ional infor juan peterson e refer to https ://ed ucati on.qu estSnoball. com/f aq/FA Q165 (This link is being provi ded for infor matelvia nal/e ducat ional purpo ses only. ) (Note ) This test was devel oped and its franco tical perfo rmanc e dio cteri stics have been deter mined by [employer]. It has not been clear ed or appro jalil by the FDA. This assay has been valid ated pursu ant to the CLIA regul ation s and is used for clini leandra purpo ses. Not Available [facility] [address], [place], [address], 02/09/2023 14:50:02 02/10/20 23 02/09/2023 TESTO STERO NE, FREE (DIAL YSIS) AND TOTAL ,MS testosterone , free 0.7 pg/mL 0.1-6. 4 (Note ) This test was devel oped and its franco tical perfo rmanc e dio cteri stics have been deter mined by [employer]. It has not been clear ed or appro jalil by the FDA. This assay has been valid ated pursu ant to the CLIA regul ation s and is used for clini leandra purpo ses. SIMIN med fusio n [address] [facility] [address] [place] [address] [phone] Jose R owens MD NO COLLE CTION DATE RECEI JALIL. WE HAVE USED THE DATE THE SPECI MEN WAS RECEI JALIL BY THIS LABOR ATORY THE COLLE CTION DATE. IF THIS IS INCOR RECT, PLEAS E CONTA CT CLIEN T SERVI CAL. PHONE NUMBE R: [phone] Not Available [address], [address], 02/09/2023 14:50:02 11/06/19 24 11/06/2023 THINP REP TIS PAP clinical information: normal None given Not Available [address], [address], 11/06/2023 18:22:37 11/06/19 24 11/06/2023 THINP REP TIS PAP LMP: normal NONE GIVEN Not Available [address], [address], 11/06/2023 18:22:37 11/06/19 24 11/06/2023 THINP REP TIS PAP prev. Pap: normal NONE GIVEN Not Available [address], [address], 11/06/2023 18:22:37 11/06/19 24 11/06/2023 THINP REP TIS PAP prev. BX: normal NONE GIVEN Not Available [address], [address], 11/06/2023 18:22:37 11/06/19 24 11/06/2023 THINP REP TIS PAP source: normal Cervi x Not Available [address], [address], 11/06/2023 18:22:37 11/06/19 24 11/06/2023 THINP REP TIS PAP statement of adequacy: normal Satis facto ry for evalu ation . Endoc ervic al/tr ansfo rmati on zone compo nent prese nt. Age and/o r menst rual statu s not provi ded Not Available [address], [address], 11/06/2023 18:22:37 06/18/20 24 11/06/2023 THINP REP TIS PAP interpretati on/result: normal Cytol ogy Resul ts: Negat janae for intra epith elial lesio n or malwally liriano . Not Available [address] [address] [place], [address], 11/06/2023 18:22:37 11/06/19 24 11/06/2023 THINP REP TIS PAP comment: normal This Pap test has been evalu ated with compu rosario techn ology . Not Available [address] [place], [address], 11/06/2023 18:22:37 11/06/19 24 11/06/2023 THINP REP TIS PAP cytotechnolo gist: normal YQ, CT( CP) CT scree grayson locat ion: [address] [place] [address] Not Available [address] [place], [address], 11/06/2023 18:22:37 11/06/19 24 11/06/2023 THINP REP TIS PAP comment EXPLA NATOR Y NOTE: The Pap is a scree grayson test for cervi leandra cance r. It is not a diagn ostic test and is subje ct to false negat janae and false posit janae resul ts. It is most relia ble when a satis facto ry sampl e, regul yari obtai lexie, is submi tted with relev ant clini leandra findi ngs and histo ry, and when the Pap resul t is evalu ated along with histo aida and curre nt clini leandra infor matio n. Not Available [address] [address] [place], [address], 11/06/2023 18:22:37 11/06/19 24 11/06/2023 INSUL IN insulin 93.8 uIU/m L high Refer ence Range < or = 18.4 Risk: Optim al < or = 18.4 Moder ate NA High >18.4 Adult cardi ovasc ular event risk categ ory cut point s (opti mal, moder ate, high) are based on Insul in Refer ence Inter tenzin studi es perfo rmed at [facility] in 2021. NO COLLE CTION DATE RECEI JALIL. WE HAVE USED THE DATE THE SPECI MEN WAS RECEI JALIL BY THIS LABOR ATORY THE COLLE CTION DATE. IF THIS IS INCOR RECT, PLEAS E CONTA CT CLIEN T SERVI CAL. PHONE NUMBE R: [phone] Not Available [employer] [facility] [address] , [place], [address], 11/06/2023 18:22:37 06/28/19 23 06/30/2022 VAGIN ITIS PLUS STD PANEL bacterial vaginosis BV neg negati ve normal Not Available [address], [address], 07/01/2022 10:02:54 06/28/19 23 06/30/2022 VAGIN ITIS PLUS STD PANEL jorge species C. spp neg negati ve normal Not Available [facility] [address] [place] [address], [address], 07/01/2022 10:02:54 06/28/19 23 06/30/2022 VAGIN ITIS PLUS STD PANEL jorge glabrata C. gla neg negati ve normal Not Available [address], [address], 07/01/2022 10:02:54 06/28/19 23 06/30/2022 VAGIN ITIS PLUS STD PANEL trichomonas vaginalis CV/TV TRICH neg negati ve normal Not Available [facility] [address] [place] [address], [address], 07/01/2022 10:02:54 06/28/19 23 06/30/2022 VAGIN ITIS PLUS STD PANEL chlamydia trachomatis CT neg negati ve normal This repor t is inten ded for us in clini leandra monit oring and manag ement of patighanshyam nts. It is not inten ded for use in medic al- gal appli catio n. Not Available [facility] [address] [place] [address], [address], 07/01/2022 10:02:54 06/28/19 23 06/30/2022 VAGIN ITIS PLUS STD PANEL neisseria gonorrhoeae GC neg negati ve normal This repor t is inten ded for us in clini leandra monit oring and manag ement of mayur nts. It is not inten ded for use in medic al-le gal appli catio n. Not Available [address], [address], 07/01/2022 10:02:54 11/02/19 24 11/03/2023 CBC (INCL UDES DIFF/ PLT) WBC 8.2 thous and/u L 4.0 - 9.8 normal Not Available [address], [address], 11/03/2023 10:34:41 11/02/19 24 11/03/2023 CBC (INCL UDES DIFF/ PLT) RBC 4.8 klarissa on/uL 3.9 - 4.9 normal Not Available [address], [address], 11/03/2023 10:34:41 11/02/19 24 11/03/2023 CBC (INCL UDES DIFF/ PLT) hemoglobin 13.6 g/dL 11.8 - 14.8 normal Not Available [address], [address], 11/03/2023 10:34:41 11/02/19 24 11/03/2023 CBC (INCL UDES DIFF/ PLT) hematocrit 40.8 % 35.5 - 44.0 normal Not Available [address], [address], 11/03/2023 10:34:41 11/02/19 24 11/03/2023 CBC (INCL UDES DIFF/ PLT) MCV 84.8 fL 82.0 - 99.0 normal Not Available [address], [address], 11/03/2023 10:34:41 11/02/19 24 11/03/2023 CBC (INCL UDES DIFF/ PLT) MCH 28.3 pg 27.2 - 32.6 normal Not Available [address], [address], 11/03/2023 10:34:41 11/02/19 24 11/03/2023 CBC (INCL UDES DIFF/ PLT) MCHC 33.3 g/dL 31.5 - 35.5 normal Not Available [address], [address], 11/03/2023 10:34:41 11/02/19 24 11/03/2023 CBC (INCL UDES DIFF/ PLT) RDW-CV 12.9 % 11.5 - 14.5 normal Not Available [address], [address], 11/03/2023 10:34:41 11/02/19 24 11/03/2023 CBC (INCL UDES DIFF/ PLT) platelet 329 thous and/u L 140 - 350 normal Not Available [address], [address], 11/03/2023 10:34:41 11/02/19 24 11/03/2023 CBC (INCL UDES DIFF/ PLT) MPV 10.7 fL 9.3 - 12.4 normal Not Available [address], [address], 11/03/2023 10:34:41 11/02/19 24 11/03/2023 CBC (INCL UDES DIFF/ PLT) absolute neutrophil 4.74 thous and/u L 1.90 - 7.00 normal Not Available [address], [address], 11/03/2023 10:34:41 11/02/19 24 11/03/2023 CBC (INCL UDES DIFF/ PLT) absolute lymphocyte 2.58 thous and/u L 0.70 - 4.50 normal Not Available [address], [address], 11/03/2023 10:34:41 11/02/19 24 11/03/2023 CBC (INCL UDES DIFF/ PLT) absolute monocyte 0.52 thous and/u L 0.10 - 1.30 normal Not Available [address], [address], 11/03/2023 10:34:41 11/02/19 24 11/03/2023 CBC (INCL UDES DIFF/ PLT) absolute eosinophil 0.34 thous and/u L <0.70 normal Not Available [address], [address], 11/03/2023 10:34:41 11/02/19 24 11/03/2023 CBC (INCL UDES DIFF/ PLT) absolute basophil 0.04 thous and/u L <0.20 normal Not Available [address], [address], 11/03/2023 10:34:41 11/02/19 24 11/03/2023 CBC (INCL UDES DIFF/ PLT) absolute immature granulocyte 0.01 thous and/u L <0.03 normal Not Available [address], [address], 11/03/2023 10:34:41 05/15/20 24 05/16/2024 VAGIN ITIS PLUS STD PANEL bacterial vaginosis BV neg negati ve normal Not Available [address], [address], 05/17/2024 08:41:39 05/15/20 24 05/16/2024 VAGIN ITIS PLUS STD PANEL jorge species C. spp neg negati ve normal Not Available [address], [address], 05/17/2024 08:41:39 05/15/20 24 05/16/2024 VAGIN ITIS PLUS STD PANEL jorge glabrata C. gla neg negati ve normal Not Available [address], [address], 05/17/2024 08:41:39 05/15/20 24 05/16/2024 VAGIN ITIS PLUS STD PANEL trichomonas vaginalis CV/TV TRICH neg negati ve normal Not Available [address], [address], 05/17/2024 08:41:39 05/15/20 24 05/16/2024 VAGIN ITIS PLUS STD PANEL chlamydia trachomatis CT neg negati ve normal This repor t is inten ded for us in clini leandra monit oring and manag ement of patie nts. It is not inten ded for use in medic al-le gal appli catio n. Not Available [address], [address], 05/17/2024 08:41:39 05/15/20 24 05/16/2024 VAGIN ITIS PLUS STD PANEL neisseria gonorrhoeae GC neg negati ve normal This repor t is inten ded for us in clini leandra monit oring and manag ement of patie nts. It is not inten ded for use in medic al-le gal appli catio n. Not Available [address], [address], 05/17/2024 08:41:39 04/07/20 22 04/05/2022 US, trans vagin al No observ ation record ed. [email or web address] [address], [place], [address], 04/12/2022 18:36:02 05/18/20 24 05/15/2024 US, trans vagin al No observ ation record ed. [email or web address] [address], [place], [address], 05/19/2024 21:55:25 Result Notes None recorded. Problems Name Problem SNOMED Code Status Onset Date Resolution Date Notes Provider Name and Address Organization Details Recorded Time Finding of regulari ty of menstrua l cycle Completed 201705/22/2018 Irregula r menstrua tion, unspecif ied; Progress : Stable Added By: Briseida Calvin Add to Current Problems : NO ProblemS tatus: Resolve Not Available [facility] 2 08:01:19 Missed period 23000351 Completed 202102/05/2023 Melodie Britsch null, [place] [facility] 3 01:27:18 Menorrha te 682613177 Completed 202102/05/2023 Melodie Britsch [place] [facility] 3 01:27:12 Polycyst ic ovary syndrome 081546967 Active 2021 Melodie Britsch null, [place] [facility] 3 01:27:05 Irregula r periods 24495182 Completed 202102/05/2023 Other specifie d irregula r menstrua tion; Progress : Stable Added By: Briseida Calvin Add to Current Problems : NO ProblemS tatus: Resolve Melodie Britsch null, [place] [facility] 3 01:27:08 Abnormal uterine bleeding 75078056807 100 Completed 202102/05/2023 Melodie Britsch null, [place] [facility] 3 01:27:11 Patient encounte r status 721229384 Active 2023 GERRI Martin [address] [place], [address] , [facility] 4 15:54:40 Iron deficien cy anemia 94858334 Active 2023 GRERI Martin [address] [place], [address] , [facility] 4 16:12:46 Body mass index 40+ - severely obese 545540847 Active 2023 Donovan Scott GERRI Avila [address] [place], [address] , [facility] 4 12:54:31 Hyperins ulinism 25838204 Active 2023 Donovan Scott Margarita ERICK [address] [place], [address] , [facility] 4 13:09:13 Pain in pelvis 95764115 Active 2023 Donovan Scott Margarita [address], [address] , [facility] 4 11:46:51 Irregula r periods 87327339 Completed 201705/22/2018 Other specifie d irregula r menstrua tion; Progress : Stable Added By: Briseida Calvin Add to Current Problems : NO ProblemS tatus: Resolve Melodieamita pan, [facility] 3 01:27:08 Uses combined oral contrace ption 454012241 Completed 201710/19/2017 Encouncecile r for surveill ance of contrace ptive pills; Progress : Stable Added By: Briseida Calvin Add to Current Problems : NO ProblemS tatus: Resolve Routine follow-u p for oral contrace ptive prescrip tion; Location : None Progress : Stable Added By: Briseida Calvin Add to Current Problems : YES ProblemS tatus: Resolve Not Available [facility] 2 08:01:12 Problem Notes None recorded. Procedures Surgical History Date Name Laterality Status Provider Name and Address Organization Details Recorded Time 4 Date of Last Pap Smear completed Sisi Thomas [facility] 05/15/2024 11:21:55 transfusion of blood product completed GERRI Martin [address] [place], [address], [facility] 03/22/2022 16:01:58 Imaging Results Imaging Date Name Status LastModified by Organization Details LastModified Time 04/05/2022 US, transvaginal completed [email or web address] [address], [place], [address], 04/12/2022 18:36:02 05/15/2024 US, transvaginal completed [email or web address] [address], [place], [address], 05/19/2024 21:55:25 Procedure Notes None recorded. Medical Equipment None Reported. Allergies Allergen ID Allergen Name Allergen Category Reaction Reaction Severity Criticality Documentation Date Start Date Code Code System Note Provider Name and Address Organization Details Recorded Time 887803 [facility] 24 medicatio n Not available Not available Not available 03/11/20212017 94884 UNK Sever ity: Moder ate; Melodie pan, [facility] 15:51:46 Medications Name Sig Start Date Stop Date Status Note LastModified by Organization Details LastModified Time medroxypro gesterone 10 mg tablet Take 1 tab po three times per day for 3 days 06/28 completed Not Available Not Available Not Available Aviane 0.1 mg-20 mcg tablet Take 1 tablet(s ) by mouth daily as directed . 03/22 completed Aviane 28 20mcg/0 .1mg Tablet RxNorm: 763012 Allow Substit ution: True Refill Denied: No Not Available Not Available Not Available trazodone 50 mg tablet TAKE 1 TABLET BY MOUTH EVERYDAY AT BEDTIME 05/15 completed Not Available Not Available Not Available metformin 850 mg tablet TAKE 1 TABLET BY MOUTH EVERY DAY 05/15 completed Not Available Not Available Not Available ferrous sulfate 325 mg (65 mg iron) tablet TAKE 1 TABLET BY MOUTH EVERY DAY FOR 30 DAYS 05/15 completed Not Available Not Available Not Available ergocalcif manny (vitamin D2) 1,250 mcg (50,000 unit) capsule TAKE 1 CAPSULE BY MOUTH ONE TIME PER WEEK FOR 90 DAYS 05/15 completed Not Available Not Available Not Available drospireno ne 3 mg-ethinyl estradiol 0.03 mg tablet TAKE 1 TABLET BY MOUTH EVERY DAY 06/28 completed Not Available Not Available Not Available EluRyng 0.12 mg-0.015 mg/24 hr vaginal ring INSERT 1 VAGINAL RING BY VAGINAL ROUTE, LEAVE IN PLACE FOR 3 WEEKS, THEN REMOVE FOR 1 WEEK. active Not Available Not Available No t Available semaglutid e (weight loss) 0.25 mg/0.5 mL subcutaneo us pen injector Inject 0.25 mg every week by subcutan eous route for 30 days. 2023 active Not Available Not Available Not Avai lable Vitals Date Recorded Body height Body mass index (BMI) [Percentile] Per age and sex Body mass index (BMI) Body weight Body temperature Systolic blood pressure Diastolic blood pressure Provider Name and Address Organization Details Last Updated DateTime 2 160.02 cm 98 % 40.8 kg/m2 824624. 96 g 97.3 [degF] 108 mm[Hg] 64 mm[Hg] [facility] [employer] [facility] 2 17:14:27 Date Recorded Body height Body mass index (BMI) Body mass index (BMI) [Percentile] Per age and sex Body weight Body temperature Systolic blood pressure Diastolic blood pressure Provider Name and Address Organization Details Last Updated DateTime 3 160.02 cm 39.8 kg/m2 98 % 479024. 13 g 97.7 [degF] 118 mm[Hg] 70 mm[Hg] [facility] [employer] [facility] [facility] 3 18:20:24 Date Recorded Body height Provider Name an d Address Organization Details Last Updated DateTime 02/05/2023 160.02 cm Marjorie Wright [place] [facility] 02/05/2023 15:02:03 Date Recorded Body height Body mass index (BMI) Body weight Body temperature Systolic blood pressure Diastolic blood pressure Provider Name and Address Organization Details Last Updated DateTime 4 160.02 cm 42.7 kg/m2 334447. 76 g 97.3 [degF] 112 mm[Hg] 70 mm[Hg] Mirna Mccain [facility] 4 15:34:45 Date Recorded Body height Body mass index (BMI) Body weight Body temperature Systolic blood pressure Diastolic blood pressure Provider Name and Address Organization Details Last Updated DateTime 4 160.02 cm 40.5 kg/m2 511785. 5 g 97.3 [degF] 118 mm[Hg] 78 mm[Hg] Sisi Thomas [facility] 4 11:20:51 Social History Question Answer Notes LastModified by Organizat ion Details LastModified Time Tobacco Smoking Status Never Smoker Melodie pan, [place] [facility] 03/22/2022 15:53:40 If You Are , What Was Your Level Of Alcohol Consumption Prior To ? Occasional Information not available 03/22/2022 Are You Blind Or Do You Have Difficulty Seeing? No Information not available 03/22/2022 Are You Deaf Or Do You Have Serious Difficulty Hearing? No Information not available 03/22/2022 What Type Of Diet Are You Following? REGULAR Information not available 03/22/2022 Which Illicit Or Recreational Drugs Have You Used? Marijuana Information not available 03/22/2022 How Many Children Do You Have? 0 Information not available 03/22/2022 What Is Your Relationship Status? Single [email or web address] Information not available 01/03/2022 Are You Sexually Active? Yes Information not available 03/22/2022 Have You Used IV Drugs? No Information not available 03/22/2022 Sex: Unknown Functional Status Question Answer Note LastModified by Organizat ion Details LastModified Time Do you use any illicit or recreational drugs? Yes Information not available 03/22/2022 Do you or have you ever used any other forms of tobacco or nicotine? No Information not available 03/22/2022 What is your level of alcohol consumption? Occasional Information not available 03/22/2022 What is your exercise level? None Information not available 03/22/2022 Mental Status None recorded. Family History Relationship Description Onset Age of this Age Resolved Age Notes LastModified by Organization Details LastModified Time Mother Hypertensive disorder [email or web address] Not available 12/19 23:01:39 Medical History Condition Response Anxiety Disorder Y Polycystic Ovarian Syndrome Y Anemia Y Gynecological History Statement/Question Response Flow Moderate Date of last HPV Date of LMP HPV Vaccine N Date of Last Pap Smear 11/06/2023 Current Control Method Vaginal Rin g Age at Menarche 11 Obstetrics History GPAL:G 0 P 0 0 0 1 Type Value Living 1 Total 0 Immunizations Vaccine Type Date Status Note Provider Nam e and Address Organization Details Recorded Time Influenza, split virus, trivalent, PF 02/16/2024 completed Sisi pan, [facility] 05/15/2024 11:17:00 Past Encounters Encounter ID Performer Location Encounter Start Date Encounter Closed Date Diagnosis/Indication Diagnosis SNOMED-CT Code Diagnosis ICD10 Code Diagnosis Note [id number] GERRI Martin [facility] [address] [place] [address] 03/22/2022 15:34:57 03/22/2022 16:34:01 Irregular periods 86899122 N92.6 Schedule a f/u appointmen t once results received Menorrhagia 774798417 N9 2.0 Primary oligomenorrhea 93779266 N91.3 [id number] GERRI Martin [facility] [address] [place] [address] 04/05/2022 16:09:19 04/06/2022 09:37:34 Oligomenorrhea 87618936 N91.5 Polycystic ovary syndrome 131101628 E28.2 *US shows multiple cysts to both ovaries.*D x of PCOS based on menstrual hx, elevated testostero ne/ androgenic physical symptoms, and US findings of multiple [place]. ovarian cysts *Labs reviewed with patient, notable for elevated testostero ne and insulin*Di scussed dx, etiology, and prognosis including increased risk of metabolic syndrom and TIIDM.*Rec ommend lifestyle changes and starting YENNY as first steps.*Dis cussed benefits of weight loss in restoring ovulation, as well as reducing many other health risks. *Diet and exercise counseling done.*Disc ussed pill vs vaginal ring. Discussed risks and benefits, including increased risk of VTE and ovarian/co mariah cancer risk reduction. Agrees to tx with OCPs- rx sent*Revie wed alternativ e and secondary tx options including more anti-belinda genic YENNY, spironolac tone, metformin. Explained R/B of Metformin given high insulin levels. Jimisha agrees to treatment with Metformin- rx sent.*Neyjuanita rowdy reviewed risk of infertilit y with anovulatio n and potential for ovulation induction in the future as needed. * OCP start:ACHE S explained. R/B explained. Small increased risk for stroke and VTE. Side effects reviewed, i.e. nausea, breast tenderness , headaches. May increase B/P. If side effects, take pills at bedtime. RTO in 3 months. [id number] GERRI Martin [facility] [address] [place] [address] 06/28/2022 18:13:59 06/29/2022 12:23:52 Screening for disorder 530358831 Z11.3 N89.9 Therapeuti c drug monitoring assay 47744639 Z51.81 No problems on Metformin. Will continue Polycystic ovary syndrome 877352858 E28.2 [id number] Donovan Vernonallysonjennifer GERRI [facility] [address] [place] [address] 02/05/2023 15:00:01 02/05/2023 18:26:05 Gynecologic examination 34550670 Z01.419 WWE completedP ap obtained. Cervical cancer screening guidelines reviewed.C ontracepti on- nuvaring (generic)C BE nml. Discussed breast self-aware nessDiscus sed healthy diet, regular exercise, probiotics Screening for malignant neoplasm of cervix 125712550 Z12.4 Cervical cancer screening is used to find abnormal changes in the cells of the cervix that could lead to cancer. Screening includes the Pap test and, for some women, testing for a virus called human papillomav irus (HPV). The main cause of cervical cancer is infection with HPV. Surveillan ce of contraception 854150914 Z30.40 No needs for refills- were sent in recently Depression screening 171 530536 Z13.31 screen negative Polycystic ovary syndrome 958305210 E28.2 [id number] Donovan Scott Bejennifer GERRI [facility] [address] [place] [address] 11/02/2023 15:29:25 11/02/2023 17:27:33 Patient encounter status 076233324 R87.615 Z12.4 Cervical cancer screening is used to find abnormal changes in the cells of the cervix that could lead to cancer. Screening includes the Pap test and, for some women, testing for a virus called human papillomav irus (HPV). The main cause of cervical cancer is infection with HPV. Repeat pap obtained Additional diagnosis detail: Encounter for repeat Pap smear due to previous insufficie nt cervical cellsAddit ional diagnosis detail: Encounter for repeat Papanicola ou smear of cervix Hyperinsulinism 74159962 E16.1 Additional diagnosis detail: Hyperinsul inemia Iron defic iency anemia 27811937 D50.8 Additional diagnosis detail: Other iron deficiency anemia Body mass index 40+ - severely obese 526715610 E66.01 Having obesity increases a person's risk of developing many health problems:D iabetesHig h blood pressureHi gh cholestero lHeart disease (including heart attacks)St rokeSleep apnea (a disorder in which you stop breathing for short periods while asleep)Ast aCancerS tudies show that people with obesity younger than people who are a healthy weight. .Additiona l diagnosis detail: Obesity, morbid, BMI 40.0-49.9 [id number] GERRI Martin [facility] [address] [place] [address] 05/15/2024 11:14:56 05/15/2024 12:18:55 Pain in pelvis 20088599 R10.2 A U/S completed today shows a normal uterus and ovaries. Multiple follicles around ovaries and a small amount of fluid in the cul-de-sac were noted. Health Concerns Section Related Observation LastModified by Organization Detai ls LastModified Time None Recorded Concern Status LastModified by Organization Details LastModified Time None Recorded Advance Directives Directive None Recorded Payers Insurance Date Sequence Insurance Name Policy Number Policy Rich Covered Member ID Rich Member ID Guarantor Name 05/19/2024 1 [facility] ON OR AFTER 11/18/20 (MEDICAID REPLACEMENT - HMO) Reza Aviles [id number] Reza Aviles Notes Date Note Type Note Provider Name and Address Organization Details Recorded Time 04/05/2022 text/html Irregular PeriodsReported bypatient.Onset/Timin g:present cycle Quality:light; moderate; clots Associated Symptoms:no fatigue; no irritability; good quality of life Reza presents for a f/u visit to discuss labs results and for US. The following labs were done: FSH, LH, prolactin, testosterone, A1c, estradiol, CBC, TSH, and 17-hydroxyprogesteron e.Testosterone elevated at 91. Insulin 24.8. Rest labs normal.Reza states she stopped bleeding 2 days ago. Last HPI:presents with c/o irregular menses. Reports amenorrhea for 1 year, now has been bleeding for 3 weeks. She reports bleeding is moderate. Reports lower abdominal pain - /10.Reports excessive chin hair and mustache. Denies acne but lately has been braking out. Has difficulty losing weight. GERRI Martin [address] [place], [address], [facility] 04/08/2022 10:01:35 06/28/2022 text/html Reza is here for a medication f/u visit. She was started on Metformin 03/2022 for PCOS.Denies problems and reports cycles have normalizedShe desires STI screening GERRI Martin [address] [place], [address], [facility] 07/02/2022 22:47:29 02/05/2023 text/html Annual GYNReport ed bypatient.History:no gynecologic complaints Menstrual cycle:Normal menses Urinary symptoms:No hematuria; No incontinence Vulva:No genital lesion Vagina:Normal vaginal discharge Breast:No breast pain; No breast lump; No nipple discharge Current Contraception:Satisfi ed with current contraception; Nuvaring Sexual complaints:No sexual complaints; No pain during intercourse; Normal libido Psychological symptoms:No depression; No anxiety; No PMDD Preventive measures:Encourage regular exercise Reza presents for her annual WWE. She uses Nuvaring for contraception and is doing well. First pap today,h/o oligomenorrhea. Denies pelvic pain, dysmenorrhea, and dyspareunia. She denies vaginal discharge, irritation, and odor. GERRI Martin [address] [place], [address], [facility] 02/15/2023 15:08:17 11/02/2023 text/html Reza presents for a repeat pap. Her last pap was done 02/09/23 and unsatisfactory.Labs done at her annual WWE included insulin and testosterone. She is diagnosed with PCOS. Her insulin level was elevated at 99.9. She reports a h/o low iron. Reza reports that she seems to have to take an iron supplement all the time because of low iron. A recent iron level by her PCP was slightly low at 12. She was told to take an iron supplement. No recent CBC. Reza denies ever having had a work-up to identify a cause for continued low iron levels.Reza uses the vaginal ring to regulate menstrual bleeding and states she is doing well.She voices the desire to lose weight. States that her PCP referred her to a weight loss physician but the appointment is not until January. Donovan Avila, [place] [id number] [facility], [place], [address], [facility] - [facility] IV 11/06/2023 13:17:27 05/15/2024 text/html Irregular PeriodsReported bypatient.Onset/Timin g:The patient reports amenorrhea, noting that menstrual cycles have been inconsistent this year, but this has been the most consistent year of cycles she has experienced. She has only missed three periods over the current year. The patient utilizes a vaginal contraceptive ring and reports consistency in use. She mentioned that the pain emerged after the ring was removed, initially thinking it was going to lead to menstruation, but no period followed. The patient last had her menstrual period in February, and there were no periods in March or April.Pelvic PainReported bypatient.Context:The patient is a 24-year-old female presenting with pelvic pain and amenorrhea. The pelvic pain began approximately one month ago and is described as a cramp-like sensation located in the ovary region, affecting both sides. The pain can be generalized and radiates throughout the lower abdominal area. It has been described as moderate, with the patient rating it as about a 5 on a pain scale from 0 to 10, noting a high tolerance for pain. The pain comes and goes, typically lasting for a few hours when present. The patient has not taken any medication for the pain as it is not considered unbearable Associated Symptoms:no chills; no constipation; no diarrhea; no vaginal discharge; no pain with urination; normal emptying of bladder; no feelings of urgency; no blood in the urine; no fever; no nausea; no vomiting; no nocturia; no ectopic pregnancies; no endometriosis; no urinary frequency; no vaginal itching or irritation; no dyspareunia; There has been no reported abnormal vaginal bleeding, discharge, or irritation. The patient mentioned no instances of painful urination or changes in urinary habits, nausea, vomiting, abdominal pain, or bowel irregularities such as constipation or diarrhea. A Pap smear conducted in October returned normal results. Donovan Avila, [address] [place], [address], [facility] 05/16/2024 16:04:48 OBGyn Episode No OBEpisode recorded.
--- OUTSIDE RECORDS SUMMARY | 2024-09-29 17:54 | XMS_ITS ---
Author Organization [facility] Address [address] [place] [address] Phone Care Team Providers Care Store Specialist Name Role Phone Mahamed Cruz MD Unavailable [phone] Agnes Gustafson LACTATION COORDINATOR, HOME HEALTH CAREGIVER Primary Care Provide r Abelardo Gibbs MD Unavailable [facility] Service Episode Status:Identified (Enrolling) Start date:07/09/2024 Related program episode:[facility] (Closed) Continued Care and Services Coordination
[2024-09-29 17:58] VITALS: BP 135/64; PULSE 97; RESP 16; TEMP 37.7; O2SAT 99
[2024-09-29 18:02] VITALS: O2SAT 99
--- OUTSIDE RECORDS SUMMARY | 2024-09-29 18:25 | XMS_ITS | Clinical Summary ---
Author Organization [facility] Address [address] [place] [address] Phone Care Team Providers Care Bar Host/Hostess Name Role Phone Mahamed Cruz MD Unavailable [phone] Agnes Gustafson APRN, CONTINUOUS IMPROVEMENT FACILITATOR Primary Care Provide r Abelardo Gibbs MD [...] Description 09/08/2024 2:00 PM CDT Office Visit [facility] - Pulmonology & Sleep Medicine [facility] [address] [place] [address] Abelardo Gibbs MD MARK (obstructive [...] Medical Group - Pulmonology & Sleep Medicine [facility] [address] [place] [id number] Abelardo Gibbs MD [address] [place] [address] Health Maintenance Due Date Last [...] PLAN MEDICAID [employer] Care Teams Bar Host/Hostess Relationship Specialty Start Date End Date Agnes Gustafson APRN, CONTINUOUS IMPROVEMENT FACILITATOR [address] [place] [address] PCP - General Advanced Practice Nurse 11/21/23 Mahamed Cruz MD [address] [place] [id number] Consulting Physician Oncology 11/02/22 Abelardo Gibbs MD [address] [place] [address] Consulting Physician Pulmonary Disease 04/23/24
--- OUTSIDE RECORDS SUMMARY | 2024-09-29 18:25 | XMS_ITS ---
Author Organization [facility] Address [address] [place] [address] Phone Care Team Providers Care Chief Learning Officer Name Role Phone Mahamed Cruz MD Unavailable [phone] Agnes Gustafson CORPORATE TRAINER, JACKSCREW MAN Primary Care Provide r Abelardo Gibbs MD Unavailable [facility] Service Episode Status:Identified (Enrolling) Start date:07/09/2024 Related program episode:[facility] (Closed) Continued Care and Services Coordination
[2024-09-29] MEDS: OFLOXACIN 0.3% OPHTH SOLN 5 ML BTL 3 DROP EACH EAR (18:56)
[2024-09-29] MEDS: IBUPROFEN 600 MG TABLET PO (18:56)
--- NOTE | 2024-09-29 19:08 | ED_ITS ---
HPI - URI/Sore Throat General Chief Complaint: Upper Respiratory Infection Stated Complaint: ears pain, sinus Time Seen by Provider: 09/29/24 18:00 Source: patient Mode of arrival: ambulatory Limitations: no limitations History of Present Illness HPI Narrative: Patient is a 24-year-old female who presents the ED with report of URI symptoms. Patient reports she developed fever, sore throat, congestion, bilateral ear pain last . She was seen in urgent care over the weekend, tested negative for strep/influenza/COVID, prescribed amoxicillin. Has been taking this as well as DayQuil/NyQuil at home without much improvement of symptoms. Reports bilateral ear drainage and persistent fevers. Reports mild dry cough. Denies shortness breath or chest pain. Related Data Allergies Allergy/AdvReac Type Severity Reaction Status Date / Time ethinyl estradiol (From Allergy Mild hives Verified 09/29/24 17:53 FE (28)) ferrous fumarate (From Allergy Mild hives Verified 09/29/24 17:53 FE (28)) norethindrone acetate (From Allergy Mild hives Verified 09/29/24 17:53 FE .10/17 (28)) Review of Systems Review of Systems: All systems reviewed & are unremarkable except as noted in HPI. All systems reviewed & are unremarkable except as noted in HPI and below Exam Narrative: GENERAL: Well appearing, morbidly obese with BMI of 40.8, non-toxic, in no acute distress. HEAD: Normocephalic, atraumatic. ENT: Mild posterior pharynx erythema. No tonsillar hypertrophy or exudate. Uvula midline and nonedematous. Stew EAC are erythematous and slightly swollen. Ears are tender to palpation and manipulation of pinna. Some purulent drainage noted in left EAC. Bilateral TM slightly bulging, but not erythematous. Hoarse quality to voice. RESPIRATORY: Airway patent, respirations nonlabored. Clear to auscultation bilaterally, no rales, rhonchi, wheezing. CARDIOVASCULAR: Regular rate and rhythm without murmurs, rubs, or gallops. MUSCULOSKELETAL: Moves all extremities. No gross deformities. SKIN: Warm, dry, normal color. NEURO: A&O X3. Speech clear. PSYCHIATRIC: Appropriate mood and affect. Normal interaction. Course Vital Signs Vital signs: Vital Signs Temperature 99.9 F H 09/29/24 17:58 Pulse Rate 97 09/29/24 17:58 Respiratory Rate 16 09/29/24 17:58 Blood Pressure 135/64 09/29/24 17:58 Pulse Oximetry 99 09/29/24 17:58 Oxygen Delivery Room Air 09/29/24 17:58 Temperature 99.9 F H 09/29/24 17:58 Pulse Rate 97 09/29/24 17:58 Respiratory Rate 16 09/29/24 17:58 Blood Pressure 135/64 09/29/24 17:58 Pulse Oximetry 99 09/29/24 18:02 Oxygen Delivery Room Air 09/29/24 18:02 MDM - URI/Sore Throat MDM Narrative Medical decision making narrative: Patient presented to ED with several day history of URI symptoms, bilateral ear pain. Patient borderline febrile upon arrival. She has not had any antipyretics since several hours. Given ibuprofen here. Viral swabs negative. Strep negative. Exam is consistent with otitis externa. Patient is currently already on amoxicillin. Will be started on ofloxacin ear drops. Symptoms are otherwise consistent with viral URI. Advised to continue [id number]-[id number] cough and cold medicines, close follow-up with PCP for further evaluation. Given r eturn precautions. Discharged in stable condition. Medical Records Attestation: I reviewed the patient's medical records. Lab Data Attestation: I reviewed the patient's lab results. Labs: Lab Results 09/29/24 09/29/24 Range/Units 18:09 18:39 Influenza A (RT-PCR) Negative (Negative) Influenza B (RT-PCR) Negative (Negative) RSV (RT-PCR) Negative (Negative) SARS-CoV-2 RNA (RT-PCR) Negative (Negative) Group A Strep (PCR) Not detected (Negative) Discharge Plan Discharge Clinical Impression: Upper respiratory infection Qualifiers: URI type: unspecified URI Qualified Code(s): J06.9 - Acute upper respiratory infection, unspecified Otitis externa Qualifiers: Otitis externa type: unspecified type Chronicity: acute Laterality: bilateral Qualified Code(s): H60.503 - Unspecified acute noninfective otitis externa, bilateral Patient Disposition: Home Condition: Stable Instructions: Antibiotic Form, Ear Infection (ED), Viral Syndrome (ED), Cold Symptoms (ED) Additional Instructions: Your testing for covid, influenza, RSV, strep were negative. Continue amoxicillin as previously prescribed. Utilize ear drops as prescribed. Stay well-hydrated at home. Recommend electrolyte rich fluids, Gatorade, Pedialyte, body armor. Recommend Tylenol and Ibuprofen for discomfort and/or fevers. Recommend ymbg-[id number]-[id number] cough and cold medicines for symptom relief, Delsym, Mucinex, DayQuil, NyQuil, Sudafed, Robitussin, TheraFlu. Follow with primary care doctor for further evaluation if needed. Return to the ED if you experience chest pain, difficulty breathing, unable to keep down food or drink, severe pain, or any other symptoms of concern. Patient Language: [place] Prescriptions: New ofloxacin 0.3 % drops 10 drp EACH EAR DAILY 7 Days Qty: 5 0RF Follow-up/Referrals: PHYSICIAN NOT ON STAFF,NONSTAFF [Primary Care Provider] - Time of Disposition: 19:39
[2024-09-29 19:30] LABS: Strep Group A RT-PCR Not Detected (Negative)
[2024-09-29 19:31] LABS: Influenza A QL RT-PCR Negative (Negative); Influenza B QL RT-PCR Negative (Negative); RSV RNA, RT-PCR Negative (Negative); SARS-CoV-2 RNA PCR Negative (Negative)
[2024-09-29 19:46] VITALS: BP 121/76; PULSE 77; RESP 17; O2SAT 100
== END 2024-09-29 19:47 | disposition home or self-care (01) ==
PROVIDERS: Emergency Provider Physician Assistant
DX: J06.9 Acute upper respiratory infection, unspecified (principal); H60.503 Unspecified acute noninfective otitis externa, bilateral; Z20.822 Contact with and (suspected) exposure to COVID-19
CPT/HCPCS: 87637; 87651; 99283; A9270